=== PATIENT | male | born 1975 | race Caucasian/White ===

== ENCOUNTER 2021-07-07 17:33 | Inpatient (IN) | payer OTHER ==
[2021-07-07] MEDS ORDERED: HEPARIN SODIUM 1,000 UN/ML (10ML VL) IV ONE (17:56)
[2021-07-07] MEDS ORDERED: SODIUM CHLORIDE 0.9% 1,000 ML IV STA (17:56)
[2021-07-07] MEDS ORDERED: ASPIRIN 81 MG PO STA (17:56)
[2021-07-07] MEDS ORDERED: NALOXONE 0.4 MG/ML 1 ML VIAL IV PRN (18:06)
--- NOTE | 2021-07-07 18:06 | ED ---
General Adult HPI - General Chief complaint: Chest Pain Stated complaint: Chest & Jaw pain Time Seen by Provider: 07/07/21 17:52 Source: patient, family, RN notes reviewed, old records reviewed Mode of arrival: ambulatory - History of Present Illness Initial comments: Patient is a 45-year-old male with past medical history remarkable for hypertension who presents emergency Department complaining of chest pain with radiation to his left jaw. Describes left-sided chest pain as sharp and pressure-like that is somewhat improved from earlier today. He states it first started last night and got worse this morning and throughout the day today. It eased up slightly before he arrived to the emergency department. However due to still present over the left side of his chest or describes it as a sharp, pressure-like sensation. It radiates to his left jaw. Denies any history of MIs, bleeding disorders, head injuries. Denies any shortness of breath, nausea, vomiting, abdominal pain. He otherwise has no acute complaints at this time. He presents emergency department over concern for his chest pain. It was found that his EKG was concerning for an [place] in triage and was brought back to the resuscitation bay where I evaluated the patient. History is as above. STEMI elton rebekah was activated. - Related Data Home Medications Medication Instructions Recorded Confirmed Metformin (Unknown Dose) 1 tab PO DIRECTED 07/07/21 07/07/21 Verapamil (Unknown Dose) 1 tab PO DIRECTED 07/07/21 07/07/21 Allergies Allergy/AdvReac Type Severity Reaction Status Date / Time No Known Allergies Allergy Verified 07/07/21 18:08 Review of Systems ROS Statement: Those systems with pertinent positive or pertinent negative responses have been documented in the HPI. Review of Systems: CONST: Denies fever EYES: Denies blurry vision ENT: Denies nasal congestion C/V: Endorses chest pain RESP: Denies shortness of breath GI: Denies abdominal pain : Denies dysuria SKIN: Denies rash. MSK: Denies joint pain. NEURO: Denies headache ROS Other: All systems not noted in ROS Statement are negative. Past Medical History Past Medical History: Hypertension Past Surgical History: Hernia Repair, Orthopedic Surgery Smoking Status: Former smoker Past Alcohol Use History: None Reported Past Drug Use History: None Reported General Exam - General Exam Comments Initial Comments: General: Appears in no acute distress. HEAD: Normal with no signs of head trauma. EYES: PERRLA, EOMI, conjunctiva normal, no discharge. ENT: Hearing grossly intact, normal oropharynx. RESPIRATORY: Clear breath sounds bilaterally. No wheezes, rales, or rhonchi. C/V: Regular rate and rhythm. S1 and S2 auscultated, no edema, peripheral pulses 2+ and intact throughout. Mildly hypertensive. ABD: Abd is soft, nontender, nondistended EXT: Normal range of motion, no obvious deformity SKIN: No rashes or lesions observed on exposed skin. NEURO: Alert and oriented 4. No focal weakness or numbness. Course Vital Signs 07/07/21 07/07/21 07/07/21 17:52 17:56 17:58 Pulse Rate 81 85 Pulse Rate [ Right Supine Radial] Respiratory 16 Rate Blood Pressure 171/95 171/95 O2 Sat by Pulse 97 Oximetry 07/07/21 18:00 Pulse Rate Pulse Rate [ 77 Right Supine Radial] Respiratory Rate Blood Pressure O2 Sat by Pulse Oximetry Medical Decision Making - Medical Decision Making Based on the patient's presentation and physical exam, I'm concerned for an acute STEMI. STEMI pager was activated. Cardiac labs were ordered. Patient was bolused 4000 units of heparin, given 324 mg of aspirin, and placed on oxygen. He was started on 1 L fluid bolus. I spoke with cardiology on-call, Dr. Vásquez who was in agreement with the plan. Patient will be taken to cardiac catheterization suite for immediate cardiac cath. He'll be admitted to ICU afterwards. Patient is taken to the cardiac [facility] in serious condition. Chest x-ray was obtained prior to transfer and showed no acute cardio primary process. Laboratory studies returned after the patient is taken to [facility] was remarkable for an indeterminate troponin of 0.014. Remainder the labs are unremarkable. I spoke with the admitting team,Jeannine de jesus [facility] accepted the patient. Patient was therefore admitted to the ICU in serious condition to telemetry bed. Patient will be advised to following cardiac cath. - Lab Data Result diagrams: 07/07/21 18:00 07/07/21 18:00 Lab Results 07/07/21 07/07/21 07/07/21 Range/Units 18:00 18:00 18:00 WBC 10.4 (3.8-10.6) k/uL RBC 5.20 (4.30-5.90) m/uL Hgb 16.9 (13.0-17.5) gm/dL Hct 48.2 (39.0-53.0) % MCV 92.7 (80.0-100.0) fL MCH 32.4 (25.0-35.0) pg MCHC 35.0 (31.0-37.0) g/dL RDW 13.2 (11.5-15.5) % Plt Count 266 (150-450) k/uL MPV 7.7 Neutrophils % 57 % Lymphocytes % 29 % Monocytes % 6 % Eosinophils % 3 % Basophils % 1 % Neutrophils # 6.0 (1.3-7.7) k/uL Lymphocytes # 3.0 (1.0-4.8) k/uL Monocytes # 0.7 (0-1.0) k/uL Eosinophils # 0.3 (0-0.7) k/uL Basophils # 0.1 (0-0.2) k/uL PT 10.5 (9.0-12.0) sec INR 1.0 (<1.2) APTT 23.2 (22.0-30.0) sec Sodium 137 (137-145) mmol/L Potassium 4.2 (3.5-5.1) mmol/L Chloride 103 (98-107) mmol/L Carbon Dioxide 25 (22-30) mmol/L Anion Gap 9 mmol/L BUN 16 (9-20) mg/dL Creatinine 1.10 (0.66-1.25) mg/dL Est GFR (CKD-EPI)AfAm >90 (>60 ml/min/1.73 sqM) Est GFR (CKD-EPI)NonAf 80 (>60 ml/min/1.73 sqM) Glucose 153 H (74-99) mg/dL Calcium 9.9 (8.4-10.2) mg/dL Total Bilirubin 0.5 (0.2-1.3) mg/dL AST 34 (17-59) U/L ALT 41 (4-49) U/L Alkaline Phosphatase 97 (38-126) U/L Troponin I (0.000-0.034) ng/mL Total Protein 7.6 (6.3-8.2) g/dL Albumin 4.5 (3.5-5.0) g/dL 07/07/21 Range/Units 18:00 WBC (3.8-10.6) k/uL RBC (4.30-5.90) m/uL Hgb (13.0-17.5) gm/dL Hct (39.0-53.0) % MCV (80.0-100.0) fL MCH (25.0-35.0) pg MCHC (31.0-37.0) g/dL RDW (11.5-15.5) % Plt Count (150-450) k/uL MPV Neutrophils % % Lymphocytes % % Monocytes % % Eosinophils % % Basophils % % Neutrophils # (1.3-7.7) k/uL Lymphocytes # (1.0-4.8) k/uL Monocytes # (0-1.0) k/uL Eosinophils # (0-0.7) k/uL Basophils # (0-0.2) k/uL PT (9.0-12.0) sec INR (<1.2) APTT (22.0-30.0) sec Sodium (137-145) mmol/L Potassium (3.5-5.1) mmol/L Chloride (98-107) mmol/L Carbon Dioxide (22-30) mmol/L Anion Gap mmol/L BUN (9-20) mg/dL Creatinine (0.66-1.25) mg/dL Est GFR (CKD-EPI)AfAm (>60 ml/min/1.73 sqM) Est GFR (CKD-EPI)NonAf (>60 ml/min/1.73 sqM) Glucose (74-99) mg/dL Calcium (8.4-10.2) mg/dL Total Bilirubin (0.2-1.3) mg/dL AST (17-59) U/L ALT (4-49) U/L Alkaline Phosphatase (38-126) U/L Troponin I 0.014 (0.000-0.034) ng/mL Total Protein (6.3-8.2) g/dL Albumin (3.5-5.0) g/dL - EKG Data -: EKG Interpreted by Me EKG Comments: 12-lead Electrocardiogram Interpretation Note EKG was reviewed and interpreted by myself. 12-lead ECG performed at 1745 is interpreted by me as revealing normal sinus rhythm at a rate of 78 beats per m inute. [place] is normal. HI interval is 144 ms, QRS duration is 96 seconds, QTC is [address] segment elevations in leads 2, 3, aVF with reciprocal depressions in lead I, aVL. Patient also has ST segment elevation in lead aVR.. R wave progression across the precordium was satisfactory. Repeat dictation, this EKG is concerning for a STEMI in the inferior wall distribution.. Disposition Clinical Impression: ST elevation myocardial infarction (STEMI), Chest pain Disposition: ADMITTED IP TO THIS HOSP Condition: Serious
[2021-07-07] MEDS ORDERED: SODIUM CHLORIDE 0.9% 500 ML 500 ML IV ONE (18:09)
[2021-07-07] MEDS ORDERED: IV FLUID CONTINUATION 800 ML IV ONE (18:09)
[2021-07-07] MEDS ORDERED: LIDOCAINE 1% INJ 10MG/ML (20 ML MDV) ONE (18:13)
[2021-07-07] MEDS ORDERED: VERAPAMIL 2.5 MG/ML 2 ML AMP ONE (18:14)
[2021-07-07 18:22] LABS: ALT 41 U/L (4-49); AST 34 U/L (17-59); African American GFR (CKD) >90 (>60 ml/min/1.73 sqM); Albumin 4.5 g/dL (3.5-5.0); Alkaline Phosphatase 97 U/L (38-126); Anion Gap 9 mmol/L; Blood Urea Nitrogen 16 mg/dL (9-20); Calcium 9.9 mg/dL (8.4-10.2); Carbon Dioxide 25 mmol/L (22-30); Chloride 103 mmol/L (98-107); Glucose 153 mg/dL (74-99); Non-African American GFR(CKD) 80 (>60 ml/min/1.73 sqM); Potassium 4.2 mmol/L (3.5-5.1); Sodium 137 mmol/L (137-145); Total Bilirubin 0.5 mg/dL (0.2-1.3); Total Protein 7.6 g/dL (6.3-8.2)
--- NOTE | 2021-07-07 18:27 | XR ---
EXAMINATION TYPE: XR chest 1V portable DATE OF EXAM: 07/07/2021 COMPARISON: NONE HISTORY: Chest pain TECHNIQUE: Single view FINDINGS: There is no heart failure nor confluent pneumonic infiltrate. Costophrenic angles are clear . There are no hilar masses. There are chest leads. IMPRESSION: No active cardiopulmonary disease. Normal heart.
[2021-07-07 18:31] LABS: Partial Thromboplastin Time 23.2 sec (22.0-30.0); Prothrombin Time 10.5 sec (9.0-12.0)
[2021-07-07] MEDS ORDERED: MIDAZOLAM 2 MG/2 ML VIAL IV ONE (18:37)
[2021-07-07] MEDS ORDERED: LIDOCAINE 1% INJ 10MG/ML (20 ML MDV) SQ ONE (18:38)
[2021-07-07] MEDS: VERAPAMIL SYRINGE (5 MG/10 ML) INTRAARTER ONE ×2 (18:40→19:13)
[2021-07-07] MEDS ORDERED: HEPARIN SODIUM 1,000 UN/ML (10ML VL) ONE (18:48)
[2021-07-07] MEDS ORDERED: TIROFIBAN 12.5MG-250ML NS 250 ML IV ONE (18:55)
[2021-07-07] MEDS ORDERED: TIROFIBAN BOLUS 12.5MG/250 ML BAG IV ONE (18:55)
[2021-07-07] MEDS ORDERED: IOPAMIDOL-370 100ML BTL INJ ONE ×2 (18:56→19:19)
[2021-07-07] MEDS ORDERED: NITROGLYCERIN 1000MCG/10ML SYRINGE INTRACORON ONE (18:57)
[2021-07-07 18:59] LABS: Basophils # (A) 0.1 k/uL (0-0.2); Basophils % (A) 1 %; Eosinophils # (A) 0.3 k/uL (0-0.7); Eosinophils % (A) 3 %; HCT 48.2 % (39.0-53.0); HGB 16.9 gm/dL (13.0-17.5); Lymphocytes % (A) 29 %; MCH 32.4 pg (25.0-35.0); MCV 92.7 fL (80.0-100.0); Mean Platelet Volume 7.7; Monocytes # (A) 0.7 k/uL (0-1.0); Monocytes % (A) 6 %; Neutrophils % (A) 57 %; Platelet Count 266 k/uL (150-450); RDW 13.2 % (11.5-15.5); WBC 10.4 k/uL (3.8-10.6)
[2021-07-07] MEDS ORDERED: CLOPIDOGREL 75 MG TAB ONE (19:08)
[2021-07-07] MEDS ORDERED: CLOPIDOGREL 75 MG TAB PO ONE (19:10)
[2021-07-07] MEDS ORDERED: RX INFO: IV CONTRAST WAS GIVEN 1 EACH MISC MISCELLANE PRN (19:20)
[2021-07-07] MEDS ORDERED: NITROGLYCERIN SL TABS 0.4 MG TAB SUBLINGUAL PRN (19:20)
[2021-07-07] MEDS ORDERED: MAG HYDROX/AL HYDROX/SIMETH 30 ML CUP PO PRN (19:20)
[2021-07-07] MEDS ORDERED: ZOLPIDEM 5 MG TAB PO PRN (19:20)
[2021-07-07] MEDS ORDERED: ATROPINE SULFATE 0.1 MG/ML 10ML SYRINGE IV PRN (19:20)
[2021-07-07 19:48] LABS: Glucose,Whole Blood 134 mg/dL (75-99)
[2021-07-07] MEDS ORDERED: TIROFIBAN 12.5MG-250ML NS 250 ML IV SCH (20:00)
[2021-07-07] MEDS: INSULIN ASPART (NovoLOG) 100 UNIT/ML VIAL SQ SCH (20:12)
[2021-07-07] MEDS: METOPROLOL TARTRATE 25 MG TAB PO SCH (20:13)
[2021-07-07] MEDS: SODIUM CHLORIDE 0.9% 1,000 ML IV SCH (20:14)
[2021-07-07] MEDS: FAMOTIDINE 20 MG TAB PO SCH (20:14)
[2021-07-07] MEDS: ATORVASTATIN 80 MG TAB PO SCH (20:14)
--- NOTE | 2021-07-07 21:51 | CC ---
CARDIAC CATHETERIZATION REPORT DATE OF SERVICE: 07/07/2021. PROCEDURE: 1. Left heart catheterization and coronary angiography. 2. PTCA and stenting of a 100% occluded first obtuse marginal branch of circumflex in the setting of an acute inferior ST-elevation myocardial infarction with reperfusion accomplished in 76 minutes. PERFORMED BY: Dr. Deanna Vásquez. Moderate conscious sedation time was 36 minutes. Patient was administered Versed. Oxygen saturation, hemodynamics and EKG were monitored closely. CLINICAL INFORMATION: Mr. Yinka Murphy is a 45-year-old gentleman with a newly diagnosed diabetes and also hypertension, came into the hospital with chest pain had an inferior ST-elevation, very subtle and ST depression in aVL. He was advised cardiac cath expeditiously. PROCEDURE NOTE: Under local anesthesia and strict aseptic precautions, a 6-Bahamian introducer was placed in the right radial artery. I used a JR4 guide catheter to perform selective coronary angiography of the right coronary artery and then performed with a left Xavi type 3.5 curve guide catheter to perform selective coronary angiography of the left system and went ahead and performed PCI of the first obtuse marginal branch. Subsequently, the sheath was taken out and TR band applied as per protocol and patient was sent to the room in a stable condition. He tolerated the procedure well without complications. He received 600 mg of Plavix. He also received an Aggrastat bolus and infusion as per protocol. His ACT was kept between 200 and 250. Following the PCI procedure, I checked LV pressures with a pigtail catheter but LV gram was not performed. CARDIAC CATHETERIZATION FINDINGS: Left ventricular end-diastolic pressure was 10 mmHg without any gradient across aortic valve. CORONARY ANGIOGRAPHY FINDINGS: RIGHT CORONARY ARTERY: Technically a codominant type vessel which comes off rather inferiorly the takeoff. No significant disease in the proximal one third, gives off a large acute marginal that supplies the PDA distribution. The RCA then continues and distally bifurcates into PDA and PLV, both of which supply a limited amount of myocardium. There is mild diffuse disease in these branches which are actually small, but the right coronary crosses the crux and the PDA comes off this vessel. LEFT MAIN CORONARY ARTERY: This is a short, patent vessel free of significant disease that immediately bifurcates into LAD and circumflex. LEFT ANTERIOR DESCENDING CORONARY ARTERY: Good caliber vessel extends along the anterior wall, gives off septal and a good-sized diagonal branch runs all the way to the apex supplying a sizable amount of myocardium. There are minor diffuse irregularities seen throughout the LAD system. LEFT POSTERIOR CIRCUMFLEX CORONARY ARTERY: This is a technically a nondominant, or a codominant vessel that gives off a first obtuse marginal which is totally occluded, seen as a stump. The circumflex then continues in the AV groove and gives off distal posterolateral branches which have minor diffuse disease. The first obtuse marginal is totally occluded 100% and seen as a stump and is the culprit vessel. FINAL IMPRESSION: This patient has normal filling pressures. No gradient across the aortic valve, a codominant system with diffuse disease in the branches of RCA, no significant disease in the left main, LAD has minor diffuse disease. The circumflex is marginal which is the first obtuse marginal is totally occluded 100% and is a culprit vessel. RECOMMENDATIONS: I proceeded with PCI of the circumflex expeditiously. PCI PROCEDURE DETAILS: I used a JL3.5 guide catheter to cannulate the left coronary artery and a run-through wire to cross the lesion. A 2.5 caliber 12 mm Trek balloon was used to pre-dilate the lesion. I then advanced and positioned a 28 mm long 3.25 caliber Xience stent and deployed this at 12 atmospheres. Patient had mild chest discomfort. No new EKG changes. Excellent angiographic result was achieved without complication. The patient received Aggrastat bolus and infusion. He also received 600 mg of Plavix. The sheath was taken out and TR band applied as per protocol with saturation of the fingers of the right hand of more than 93%. Excellent angiographic result without complication was achieved. Results were discussed with the patient and his and he was sent to the ICU in stable condition. MMODL / IJN: [id number] /
--- NOTE | 2021-07-07 21:54 | CONS ---
CONSULTATION This is a 45-year-old gentleman who was recently diagnosed with diabetes. He also has hypertensive cardiovascular disease. He sees Dr. Beltran from a primary care standpoint. He has a very hardworking person. He is a electrical construction project manager by trade. He has been experiencing chest discomfort on and off for at least the last couple of days. It culminated to a very strong pressure that persisted radiating to the left arm and left jaw and he came into the hospital, was found to have a J-point elevation and a STEMI alert was called. I saw the patient in the laborer [place]. He was having chest discomfort. There was a very subtle inferior J-point elevation with some ST depression in lead AVR. The patient was hemodynamically stable. He was recently diagnosed with diabetes and placed on metformin. PAST MEDICAL HISTORY: 1. Hypertension. 2. Diabetes recently diagnosed with metformin. 3. Status post umbilical hernia surgery. 4. No evidence of any prior myocardial infarction or CVA. MEDICATIONS: Medications at home include metformin, dose unknown; verapamil dose unknown. ALLERGIES: None. REVIEW OF SYSTEMS: Unremarkable other than above-mentioned facts. PHYSICAL EXAMINATION: On examination, blood pressure is 140/70, pulse rate is 90 per minute, regular. HEENT unremarkable. Fundus was not examined by me. NECK is supple. There is no JVD. I do not hear a carotid bruit. HEART exam reveals S1, S2 heard normally. There is an ejection systolic murmur at the base. Second heart sound is preserved. LUNGS are clear. ABDOMEN is soft, nontender. Lower EXTREMITIES reveal normal pulses. No edema. CENTRAL NERVOUS SYSTEM is normal. EKG revealed sinus mechanism, J-point prominence of the inferior leads and also ST depression involving lead aVL. IMPRESSION: 1. Acute inferior ST-elevation myocardial infarction. 2. Hypertension. 3. Newly diagnosed type 2 diabetes mellitus. RECOMMENDATIONS: Prompt cardiac cath and PCI were advised and I went ahead with the procedure expeditiously. MMODL / IJN: [id number] /
[2021-07-08 04:04] LABS: African American GFR (CKD) >90 (>60 ml/min/1.73 sqM); Anion Gap 5 mmol/L; Basophils # (A) 0.1 k/uL (0-0.2); Basophils % (A) 1 %; Blood Urea Nitrogen 14 mg/dL (9-20); Calcium 8.7 mg/dL (8.4-10.2); Carbon Dioxide 23 mmol/L (22-30); Chloride 108 mmol/L (98-107); Eosinophils # (A) 0.3 k/uL (0-0.7); Eosinophils % (A) 2 %; Glucose 106 mg/dL (74-99); HCT 43.6 % (39.0-53.0); HGB 14.2 gm/dL (13.0-17.5); Lymphocytes % (A) 25 %; MCH 31.1 pg (25.0-35.0); MCHC 32.7 g/dL (31.0-37.0); MCV 95.3 fL (80.0-100.0); Mean Platelet Volume 7.6; Monocytes # (A) 0.8 k/uL (0-1.0); Monocytes % (A) 7 %; Neutrophils # (A) 7.1 k/uL (1.3-7.7); Neutrophils % (A) 61 %; Non-African American GFR(CKD) >90 (>60 ml/min/1.73 sqM); Platelet Count 241 k/uL (150-450); Potassium 4.2 mmol/L (3.5-5.1); RBC 4.57 m/uL (4.30-5.90); RDW 12.6 % (11.5-15.5); Sodium 136 mmol/L (137-145); WBC 11.7 k/uL (3.8-10.6)
[2021-07-08] MEDS: INSULIN ASPART (NovoLOG) 100 UNIT/ML VIAL SQ SCH ×4 (04:21→20:11)
[2021-07-08] MEDS: METOPROLOL TARTRATE 25 MG TAB PO SCH ×2 (09:19→20:10)
[2021-07-08] MEDS: ASPIRIN 81 MG PO SCH (09:20)
[2021-07-08] MEDS: CLOPIDOGREL 75 MG TAB PO SCH (09:20)
[2021-07-08] MEDS: lisinopriL 10 MG TAB PO SCH (09:21)
[2021-07-08] MEDS: FAMOTIDINE 20 MG TAB PO SCH ×2 (09:21→20:10)
[2021-07-08] MEDS: SODIUM CHLORIDE 0.9% 1,000 ML IV SCH (09:21)
--- NOTE | 2021-07-08 09:26 | ECHOF ---
Referral Reason:Ac STEMI INF--LCX PCI MEASUREMENTS -------- HEIGHT: 177.8 cm WEIGHT: 93.4 kg BP: RVIDd: 2.5 cm (< 3.3) IVSd: 1.1 cm (0.6 - 1.1) LVIDd: 4.3 cm (3.9 - 5.3) LVPWd: 1.2 cm (0.6 - 1.1) IVSs: 1.4 cm LVIDs: 2.6 cm LVPWs: 1.9 cm LAESV Index (A-L): 18.77 ml/m Ao Diam: 3.0 cm (2.0 - 3.7) AV Cusp: 1.7 cm (1.5 - 2.6) LA Diam: 3.3 cm (2.7 - 3.8) MV EXCURSION: 24.403 mm (> 18.000) MV EF SLOPE: 167 mm/s (70 - 150) EPSS: 0.6 cm MV E Nabil: 0.97 m/s MV DecT: 166 ms MV A Nabil: 1.07 m/s MV E/A Ratio: 0.91 RAP: 5.00 mmHg RVSP: 11.42 mmHg FINDINGS -------- This was a technically good study. The left ventricular size is normal. There is mild concentric left ventricular hypertrophy. Overa ll left ventricular systolic function is normal with, an EF between 55 - 60 %. The diastolic fillin g pattern is normal for the age of the patient 11.37. The right ventricle is normal in size. The left atrial size is normal. Normal LA size by volume 22+/-6 ml/m2. The right atrial size is normal. The aortic valve is trileaflet and appears structurally normal. The mitral valve is normal. There is trace mitral regurgitation. The tricuspid valve appears structurally normal. Trace tricuspid regurgitation present. Right tiffany tricular systolic pressure is normal at < 35 mmHg. There is no pulmonic regurgitation present. The aortic root size is normal. IVC Not well visulized. There is no pericardial effusion. CONCLUSIONS -------- 1. The left ventricular size is normal. 2. There is mild concentric left ventricular hypertrophy. 3. Overall left ventricular systolic function is normal with, an EF between 55 - 60 %. 4. The diastolic filling pattern is normal for the age of the patient 11.37 5. There is trace mitral regurgitation. 6. Trace tricuspid regurgitation present. 7. There is no pericardial effusion. HOME INSPECTOR: Renetta Baird RDCS
[2021-07-08 10:14] VITALS: BMI 28.0
[2021-07-08] MEDS: allopurinoL 100 MG TAB PO SCH ×2 (10:34→20:10)
[2021-07-08 11:52] LABS: Glucose,Whole Blood 122 mg/dL (75-99)
--- NOTE | 2021-07-08 12:27 | P.HPIM ---
History of Present Illness This is a pleasant 45 years old male with past medical history of hypertension. Presents because of worsening substernal chest pain of one-day duration and elevated blood pressure found to have STEMI No other complaint of dyspnea coughing, no pain or nausea vomiting. No fever On admission his blood pressure 171/95. Rest of vitals are stable Labs reviewed, he has mild leukocytosis secondary to his stemi. rest of labs including inr, d-dimer, bmp and liver enzymes are unremarkable. his d-dimer is 0.31. troponin trended up 0.014 up to 11.9 and 25.4. EKG: Showed normal sinus rhythm at 78, ST segment elevated in late III and aVF, with some reciprocal changes in the lateral leads. Patient underwent emergent cardiac cath showing stenting 400% occluded first obtuse marginal branch of circumflex X-ray: No acute process. Review of Systems CONSTITUTIONAL: No fever, no malaise, no fatigue. HEENT: No recent visual problems or hearing problems. Denied any sore throat. CARDIOVASCULAR: No orthopnea, PND, no palpitations, no syncope. PULMONARY: No shortness of breath, no cough, no hemoptysis. GASTROINTESTINAL: No diarrhea, no nausea, no vomiting, no abdominal pain. Normoactive bowel sounds. NEUROLOGICAL: No headaches, no weakness, no numbness. HEMATOLOGICAL: Denies any bleeding or petechiae. GENITOURINARY: Denies any burning micturition, frequency, or urgency. MUSCULOSKELETAL/RHEUMATOLOGICAL: Denies any joint pain, swelling, or any muscle pain. ENDOCRINE: Denies any polyuria or polydipsia. Past Medical History Past Medical History: Hypertension Additional Past Medical History / Comment(s): umbilical hernia History of Any Multi-Drug Resistant Organisms: None Reported Past Surgical History: Hernia Repair, Orthopedic Surgery Past Anesthesia/Blood Transfusion Reactions: No Reported Reaction Additional Past Anesthesia/Blood Transfusion Reaction / Comment(s): never had blood transfusion. Smoking Status: Former smoker Past Alcohol Use History: None Reported Past Drug Use History: None Reported - Past Family History Father History Unknown: Yes Mother Family Medical History: No Reported History Sister(s) Family Medical History: Diabetes Mellitus Brother(s) Family Medical History: Diabetes Mellitus Medications and Allergies Home Medications Medication Instructions Recorded Confirmed Type Metformin (Unknown Dose) 1 tab PO DIRECTED 07/07/21 07/07/21 History Verapamil (Unknown Dose) 1 tab PO DIRECTED 07/07/21 07/07/21 History Allergies Allergy/AdvReac Type Severity Reaction Status Date / Time No Known Allergies Allergy Verified 07/07/21 18:08 Physical Exam Vitals: Vital Signs Temp Pulse Pulse Resp BP Pulse Ox 07/08/21 07:00 79 10 L 121/75 97 07/08/21 06:00 60 16 122/71 97 07/08/21 05:00 61 16 121/69 96 07/08/21 04:00 97.9 F 70 18 117/72 95 07/08/21 03:00 64 12 124/74 95 07/08/21 02:00 63 16 125/72 96 07/08/21 01:00 62 18 121/70 96 07/08/21 00:00 98.2 F 64 16 124/73 96 07/07/21 23:45 68 123/68 96 07/07/21 23:30 73 140/91 96 07/07/21 23:15 75 133/77 96 07/07/21 23:00 77 16 130/68 95 07/07/21 22:45 75 127/71 96 07/07/21 22:30 73 128/69 97 07/07/21 22:15 77 130/69 96 07/07/21 22:00 87 16 137/70 96 07/07/21 21:45 80 144/73 95 07/07/21 21:30 87 135/81 95 07/07/21 21:15 77 14 156/79 95 07/07/21 21:00 79 28 H 139/76 97 07/07/21 20:45 79 20 128/76 97 07/07/21 20:30 82 15 131/75 96 07/07/21 20:10 80 20 138/63 96 07/07/21 20:00 98.7 F 78 16 95 07/07/21 19:50 75 19 127/90 96 07/07/21 18:00 77 07/07/21 17:58 171/95 07/07/21 17:56 85 07/07/21 17:52 81 16 171/95 97 Intake and Output 07/07/21 07/08/21 07/08/21 22:59 06:59 14:59 Intake Total 379.71 600 75 Output Total 800 900 Balance -420.29 -300 75 Intake: IV 379.71 600 75 Sodium Chloride 0.9% 1, 225 600 75 000 ml @ 75 mls/hr IV . [id number] [facility] Rx#:[id number] Output: Urine 800 900 Other: # Voids 1 0 0 Weight 93.7 kg 93.6 kg GENERAL: The patient is alert and oriented x3, not in any acute distress. Well developed, well nourished. HEENT: Pupils are round and equally reacting to light. EOMI. No scleral icterus. No conjunctival pallor. Normocephalic, atraumatic. No pharyngeal erythema. No thyromegaly. CARDIOVASCULAR: S1 and S2 present. No murmurs, rubs, or gallops. PULMONARY: Chest is clear to auscultation, no wheezing or crackles. ABDOMEN: Soft, nontender, nondistended, normoactive bowel sounds. No palpable o rganomegaly. MUSCULOSKELETAL: No joint swelling or deformity. EXTREMITIES: No cyanosis, clubbing, or pedal edema. NEUROLOGICAL: Gross neurological examination did not reveal any focal deficits. SKIN: No rashes. No petechiae Results CBC & Chem 7: 07/08/21 03:08 07/08/21 03:08 Labs: Abnormal Lab Results - Last 24 Hours (Table) 07/07/21 07/07/21 07/07/21 Range/Units 18:00 19:45 22:32 WBC (3.8-10.6) k/uL Sodium (137-145) mmol/L Chloride (98-107) mmol/L Glucose 153 H (74-99) mg/dL POC Glucose (mg/dL) 134 H (75-99) mg/dL Troponin I 11.900 H* (0.000-0.034) ng/mL 07/08/21 07/08/21 07/08/21 Range/Units 03:08 03:08 03:08 WBC 11.7 H (3.8-10.6) k/uL Sodium 136 L (137-145) mmol/L Chloride 108 H (98-107) mmol/L Glucose 106 H (74-99) mg/dL POC Glucose (mg/dL) (75-99) mg/dL Troponin I 25.400 H* (0.000-0.034) ng/mL Thrombosis Risk Factor Assmnt - Choose All That Apply Each Factor Represents 1 point: Acute SC, Age 41-60 years, Obesity (BMI >25) Other Risk Factors: No Other congenital or acquired thrombophilia - If yes, enter type in comment: No Thrombosis Risk Factor Assessment Total Risk Factor Score: 3 Thrombosis Risk Factor Assessment Level: Moderate Risk Assessment and Plan Assessment: Acute inferior ST elevation myocardial infarction status post cardiac cath status post PCI to the first obtuse branch of circumflex artery Hypertension, uncontrolled upon admission over-weight with BMI of 28 Plan: This is a pleasant 45 years old male who presents with inferior STEMI Continue with dual antiplatelet therapy, aspirin and Plavix Continue with statin Continue with metoprolol and lisinopril Continue with gentle hydration Cartilage team consult Labs and medication were reviewed.. Continue same treatment. Continue with symptomatic treatment. Resume home medication. Monitor lytes and vitals. DVT and GI prophylaxis. Further recommendations depends on the clinical course of the patient DVT prophylaxis: On aspirin and Plavix GI Prophylaxis: Pepcid
[2021-07-08 16:19] LABS: Glucose,Whole Blood 110 mg/dL (75-99)
--- NOTE | 2021-07-08 17:01 | P.PN ---
Subjective Patient is doing well. He has no chest discomfort no dizziness lightheadedness no palpitations Heart rate in the 60s and 70s, afebrile 98.8F Respirations 16 Blood pressure 109/60 mmHg Normal heart sounds no murmurs or gallops or rub Bing lungs no rhonchi no crackles Abdomen is soft Except is warm Radial access site is healed well 2-D echo and Doppler study reveals mild LVH line preserved LV systolic function Impression Coronary artery disease Acute ST elevation MA, inferior wall Stenting to the occluded OM branch of the left circumflex by Dr. Vásquez Suggest Continue dual antiplatelet therapy Continue atorvastatin Continue lisinopril Continue metoprolol 25 mg twice daily Likely discharge after 24-48 hours Objective - Vital Signs Vital signs: Vital Signs Temp 98.8 F 07/08/21 16:00 Pulse 68 07/08/21 16:00 Resp 16 07/08/21 16:00 BP 104/59 07/08/21 16:00 Pulse Ox 97 07/08/21 16:00 Intake & Output 07/07/21 07/08/21 07/08/21 18:59 06:59 18:59 Intake Total 154.71 825 525 Output Total 1700 1900 Balance 154.71 -875 -1375 Weight 93.7 kg 93.6 kg 93.6 kg Intake: IV 154.71 825 525 Sodium Chloride 0.9% 1, 825 525 000 ml @ 75 mls/hr IV . [id number] [facility] Rx#:[id number] Output: Urine 1700 1900 Other: Voiding Method Urinal # Voids 0 0 - Labs CBC & Chem 7: 07/08/21 03:08 07/08/21 03:08 Labs: Abnormal Lab Results - Last 24 Hours (Table) 07/07/21 07/07/21 07/07/21 Range/Units 18:00 19:45 22:32 WBC (3.8-10.6) k/uL Sodium (137-145) mmol/L Chloride (98-107) mmol/L Glucose 153 H (74-99) mg/dL POC Glucose (mg/dL) 134 H (75-99) mg/dL Troponin I 11.900 H* (0.000-0.034) ng/mL 07/08/21 07/08/21 07/08/21 Range/Units 03:08 03:08 03:08 WBC 11.7 H (3.8-10.6) k/uL Sodium 136 L (137-145) mmol/L Chloride 108 H (98-107) mmol/L Glucose 106 H (74-99) mg/dL POC Glucose (mg/dL) (75-99) mg/dL Troponin I 25.400 H* (0.000-0.034) ng/mL 07/08/21 07/08/21 Range/Units 11:43 16:18 WBC (3.8-10.6) k/uL Sodium (137-145) mmol/L Chloride (98-107) mmol/L Glucose (74-99) mg/dL POC Glucose (mg/dL) 122 H 110 H (75-99) mg/dL Troponin I (0.000-0.034) ng/mL
[2021-07-08 19:59] LABS: Glucose,Whole Blood 173 mg/dL (75-99)
[2021-07-08] MEDS: ATORVASTATIN 80 MG TAB PO SCH (20:10)
[2021-07-09] MEDS: INSULIN ASPART (NovoLOG) 100 UNIT/ML VIAL SQ SCH ×2 (06:27→13:42)
[2021-07-09 06:33] LABS: Glucose,Whole Blood 115 mg/dL (75-99)
[2021-07-09] MEDS: METOPROLOL TARTRATE 25 MG TAB PO SCH (10:03)
[2021-07-09] MEDS: lisinopriL 10 MG TAB PO SCH (10:04)
[2021-07-09] MEDS: CLOPIDOGREL 75 MG TAB PO SCH (10:04)
[2021-07-09] MEDS: allopurinoL 100 MG TAB PO SCH (10:04)
[2021-07-09] MEDS: FAMOTIDINE 20 MG TAB PO SCH (10:04)
[2021-07-09] MEDS: ASPIRIN 81 MG PO SCH (10:04)
--- NOTE | 2021-07-09 11:38 | P.PN ---
Subjective Patient is doing well. He is resting comfortably in a chair He is been ambulating around the room He denies any chest discomfort no dizziness lightheadedness no palpitations On examination he is afebrile 98.9F pulse rate in the 60s and 70s Respirations normal Blood pressure 111/65 mmHg Normal heart sounds no murmurs no gallops Breath sounds clear no rhonchi no crackles Abdomen is soft Radials access site is healed well Impression acute myocardial infarction Status post stenting by Dr. Vásquez Preserved LV systolic function Stable from a cardiac vascular standpoint and a symptomatic procedure Plan Discharge home today on dual antiplatelet therapy High-dose statins Junior inhibitors and beta blockers Follow-up with Dr. Vásquez in a week Objective - Vital Signs Vital signs: Vital Signs Temp 98.9 F 07/09/21 08:00 Pulse 79 07/09/21 10:00 Resp 19 07/09/21 10:00 BP 119/66 07/09/21 10:00 Pulse Ox 98 07/09/21 10:00 Intake & Output 07/08/21 07/09/21 07/09/21 18:59 06:59 18:59 Intake Total 525 200 Output Total 2150 775 Balance -1625 -575 Weight 93.6 kg 91.5 kg Intake: IV 525 Sodium Chloride 0.9% 1, 525 000 ml @ 75 mls/hr IV . [id number] [facility] Rx#:[id number] Oral 200 Output: Urine 2150 775 Other: Voiding Method Urinal Urinal Urinal # Voids 0 0 2 - Labs CBC & Chem 7: 07/08/21 03:08 07/08/21 03:08 Labs: Abnormal Lab Results - Last 24 Hours (Table) 07/08/21 07/08/21 07/08/21 Range/Units 11:43 16:18 19:47 POC Glucose (mg/dL) 122 H 110 H 173 H (75-99) mg/dL 07/09/21 Range/Units 06:21 POC Glucose (mg/dL) 115 H (75-99) mg/dL
[2021-07-09 13:40] VITALS: TEMP 97.7
[2021-07-09 14:04] VITALS: BP 117/66; PULSE 70; RESP 25
--- NOTE | 2021-07-09 21:03 | P.DS ---
Providers Date of admission: 07/07/21 18:08 Attending physician: Rodrick Sethi Consults: 07/07/21 17:56 Consult Physician Stat Consulting Provider: Cardiology Julissa Consult Reason/Comments: STEMI ACTIVATION COMPLETE Do you want consulting provider notified?: Yes 07/07/21 19:20 Consult Physician Routine Consulting Provider: Cardiology Julissa Consult Reason/Comments: Post Interventional patient Do you want consulting provider notified?: Already Contacted Primary care physician: David Beltran Hospital Course: Diagnoses: Acute inferior ST elevation myocardial infarction status post cardiac cath status post PCI to the first obtuse branch of circumflex artery Hypertension, uncontrolled upon admission over-weight with BMI of 28 Hospital course: This is a pleasant 45 years old male with past medical history of hypertension. Presents because of worsening substernal chest pain of one-day duration and elevated blood pressure found to have STEMI. Patient was taken to cardiac cath by console attendant today status post PCI to the diagonal branch. Post procedure he tolerates the procedure well. He denies any chest pain or dyspnea. No other complaints. No change in urine or bowel habits and no fever. Patient was started on dual antiplatelet therapy with aspirin and Plavix and the importance of adherence to treatment is explained to him. Also he was started on metoprolol and lisinopril. Patient remains medically stable and he was cleared for discharge by cardiology team today. Problems and management plan were discussed with the patient and he verbalized understanding and acceptance Patient was found stable and can be discharged home however he needs follow-up as an outpatient. Patient was instructed to follow up with PCP Dr. ortiz within one week and patient agrees Also patient was instructed to follow up with console attendant Dr. Vásquez in one week and he agrees to call and make his own appointments Physical exam Gen: patient is a AAOx3, no distress CVS: S1-S2, RRR, no murmur Lungs: B/L CTA, no wheezing Abdomen: soft, no distention, no tenderness, positive bowel sounds Extremity: no leg edema or induration Time spent more than 35 minutes Patient Condition at Discharge: Serious Plan - Discharge Summary Discharge Rx Participant: No New Discharge Prescriptions: New Metoprolol Tartrate [Lopressor] 25 mg PO BID #60 tab lisinopriL [Zestril] 10 mg PO DAILY #30 tab Aspirin 81 mg PO DAILY #30 tab Atorvastatin [Lipitor] 80 mg PO HS #30 tab Nitroglycerin Sl Tabs [Nitrostat] 0.4 mg SUBLINGUAL Q5M PRN #10 tab PRN Reason: Chest Pain Clopidogrel [Plavix] 75 mg PO DAILY #30 tab Continue Allopurinol [Zyloprim] 100 mg PO BID metFORMIN HCL [Glucophage] 850 mg PO DAILY Verapamil HCl [Calan] 120 mg PO DAILY Discharge Medication List Allopurinol [Zyloprim] 100 mg PO BID 07/08/21 [History] Verapamil HCl [Calan] 120 mg PO DAILY 07/08/21 [History] metFORMIN HCL [Glucophage] 850 mg PO DAILY 07/08/21 [History] Aspirin 81 mg PO DAILY #30 tab 07/09/21 [Rx] Atorvastatin [Lipitor] 80 mg PO HS #30 tab 07/09/21 [Rx] Clopidogrel [Plavix] 75 mg PO DAILY #30 tab 07/09/21 [Rx] Metoprolol Tartrate [Lopressor] 25 mg PO BID #60 tab 07/09/21 [Rx] Nitroglycerin Sl Tabs [Nitrostat] 0.4 mg SUBLINGUAL Q5M PRN #10 tab 07/09/21 [Rx] lisinopriL [Zestril] 10 mg PO DAILY #30 tab 07/09/21 [Rx] Follow up Appointment(s)/Referral(s): Rj Vásquez MD [STAFF PHYSICIAN] - 1 Week David Beltran DO [Primary Care Provider] - 1-2 days Activity/Diet/Wound Care/Special Instructions: COntact CM at discharge for indigent funds Heart healthy diet Activity is restricted until you see your doctor Discharge Disposition: HOME SELF-CARE
== END 2021-07-09 14:14 | disposition home or self-care (01) | DRG 247 ==
LOC: EC 17:33 → 2SICU 18:08
PROVIDERS: ADMIT Hospitalist; ATTEND Hospitalist
PROC: B2111ZZ Fluoroscopy of Multiple Coronary Arteries using Low Osmolar Contrast (ICD-10-PCS; 2021-07-07)
PROC: B2151ZZ Fluoroscopy of Left Heart using Low Osmolar Contrast (ICD-10-PCS; 2021-07-07)
PROC: 027034Z Dilation of Coronary Artery, One Artery with Drug-eluting Intraluminal Device, Percutaneous Approach (ICD-10-PCS; principal; 2021-07-07 17:58)
PROC: 4A023N7 Measurement of Cardiac Sampling and Pressure, Left Heart, Percutaneous Approach (ICD-10-PCS; 2021-07-07 17:58)
DX: I21.19 ST elevation (STEMI) myocardial infarction involving other coronary artery of inferior wall (principal); D72.829 Elevated white blood cell count, unspecified; I10 Essential (primary) hypertension; E11.9 Type 2 diabetes mellitus without complications; I25.10 Atherosclerotic heart disease of native coronary artery without angina pectoris; R01.1 Cardiac murmur, unspecified; I25.2 Old myocardial infarction; Z68.28 Body mass index [BMI] 28.0-28.9, adult; Z79.899 Other long term (current) drug therapy; Z87.891 Personal history of nicotine dependence; Z87.19 Personal history of other diseases of the digestive system; Z79.84 Long term (current) use of oral hypoglycemic drugs
CPT/HCPCS: 36415; 71045; 80048; 80053; 83036; 84484; 85025; 85379; 85610; 85730; 93005; 93306; 93458; 96374; 99285

== ENCOUNTER 2022-05-09 08:56 | Observation (INO) | payer OTHER ==
[2022-05-09 09:33] LABS: Basophils # (A) 0.1 k/uL (0-0.2); Basophils % (A) 1 %; Eosinophils # (A) 0.2 k/uL (0-0.7); Eosinophils % (A) 1 %; HCT 53.4 % (39.0-53.0); HGB 17.3 gm/dL (13.0-17.5); Lymphocytes # (A) 2.7 k/uL (1.0-4.8); Lymphocytes % (A) 23 %; MCH 31.5 pg (25.0-35.0); MCHC 32.5 g/dL (31.0-37.0); MCV 97.1 fL (80.0-100.0); Mean Platelet Volume 7.1; Monocytes # (A) 0.7 k/uL (0-1.0); Monocytes % (A) 6 %; Neutrophils # (A) 7.7 k/uL (1.3-7.7); Neutrophils % (A) 66 %; Platelet Count 313 k/uL (150-450); RDW 12.7 % (11.5-15.5); WBC 11.7 k/uL (3.8-10.6)
[2022-05-09 09:51] LABS: ALT 62 U/L (4-49); African American GFR (CKD) >90 (>60 ml/min/1.73 sqM); Albumin 4.9 g/dL (3.5-5.0); Anion Gap 13 mmol/L; Blood Urea Nitrogen 14 mg/dL (9-20); Calcium 9.6 mg/dL (8.4-10.2); Carbon Dioxide 23 mmol/L (22-30); Chloride 100 mmol/L (98-107); Glucose 160 mg/dL (74-99); Non-African American GFR(CKD) >90 (>60 ml/min/1.73 sqM); Sodium 136 mmol/L (137-145); Total Bilirubin 1.2 mg/dL (0.2-1.3); Total Protein 7.6 g/dL (6.3-8.2)
--- NOTE | 2022-05-09 09:51 | XR ---
EXAMINATION TYPE: XR chest 2V DATE OF EXAM: 05/09/2022 COMPARISON: Chest x-ray 07/07/2021 HISTORY: Pain TECHNIQUE: Frontal and lateral views of the chest are obtained. FINDINGS: There is no focal air space opacity, pleural effusion, or pneumothorax seen. The cardiac silhouette size is within normal limits. The osseous structures are intact. IMPRESSION: No acute cardiopulmonary process.
[2022-05-09 09:52] LABS: AST 51 U/L (17-59); Alkaline Phosphatase 112 U/L (38-126)
[2022-05-09 09:53] LABS: Partial Thromboplastin Time 23.5 sec (22.0-30.0); Prothrombin Time 10.8 sec (9.0-12.0)
[2022-05-09] MEDS ORDERED: NITROGLYCERIN SL TABS 0.4 MG TAB SUBLINGUAL PRN (11:46)
[2022-05-09] MEDS ORDERED: ASPIRIN 81 MG PO STA (11:46)
--- NOTE | 2022-05-09 11:46 | ED ---
General Adult HPI - General Chief complaint: Chest Pain Stated complaint: Chest pains,history of heart attack Time Seen by Provider: 05/09/22 09:10 Source: patient, RN notes reviewed, old records reviewed Mode of arrival: ambulatory Limitations: no limitations - History of Present Illness Initial comments: This is a 46-year-old male who presents emergency Department with a past medical history significant for bypass surgery as well as multiple stents. Patient states he has diabetes type blood pressure and high cholesterol. Patient also has a strong family history of heart disease. Patient states all week long history of having been intermittent episodes of chest pain radiates to his jaw. Patient states that usually occurring while at rest. Patient states he feels like his same pain he had when he had a heart attack except not quite as strong. Patient denies any recent fever chills or cough. Patient denies any diaphoretic episodes. Patient denies shortness of breath or difficulty breathing. Patient denies any abdominal pain patient denies nausea vomiting diarrhea. Patient denies lightheadedness or dizziness. Patient is a late s welling or calf tenderness. Patient states currently the patient is pain-free. - Related Data Home Medications Medication Instructions Recorded Confirmed Verapamil HCl [Calan] 120 mg PO DAILY 07/08/21 07/08/21 allopurinoL [Zyloprim] 100 mg PO BID 07/08/21 07/08/21 metFORMIN HCL [Glucophage] 850 mg PO DAILY 07/08/21 07/08/21 Previous Rx's Medication Instructions Recorded Aspirin 81 mg PO DAILY #30 tab 07/09/21 Atorvastatin [Lipitor] 80 mg PO HS #30 tab 07/09/21 Clopidogrel [Plavix] 75 mg PO DAILY #30 tab 07/09/21 Metoprolol Tartrate [Lopressor] 25 mg PO BID #60 tab 07/09/21 Nitroglycerin Sl Tabs [Nitrostat] 0.4 mg SUBLINGUAL Q5M PRN #10 tab 07/09/21 lisinopriL [Zestril] 10 mg PO DAILY #30 tab 07/09/21 Allergies Allergy/AdvReac Type Severity Reaction Status Date / Time No Known Allergies Allergy Verified 05/09/22 09:05 Review of Systems ROS Statement: Those systems with pertinent positive or pertinent negative responses have been documented in the HPI. ROS Other: All systems not noted in ROS Statement are negative. Past Medical History Past Medical History: Coronary Artery Disease (CAD), Hypertension Additional Past Medical History / Comment(s): umbilical hernia,[place], Gout History of Any Multi-Drug Resistant Organisms: None Reported Past Surgical History: Hernia Repair, Orthopedic Surgery Past Anesthesia/Blood Transfusion Reactions: No Reported Reaction Additional Past Anesthesia/Blood Transfusion Reaction / Comment(s): never had blood transfusion. Past Psychological History: No Psychological Hx Reported Smoking Status: Former smoker Past Alcohol Use History: None Reported Past Drug Use History: None Reported - Past Family History Father History Unknown: Yes Mother Family Medical History: No Reported History Sister(s) Family Medical History: Diabetes Mellitus Brother(s) Family Medical History: Diabetes Mellitus General Exam - General Exam Comments Initial Comments: GENERAL: Patient is well-developed and well-nourished. Patient is nontoxic and well- hydrated and is in no acute distress. ENT: Neck is soft and supple. No significant lymphadenopathy is noted. Oropharynx is clear. Moist mucous membranes. Neck has full range of motion without eliciting any pain. EYES: The sclera were anicteric and conjunctiva were pink and moist. Extraocular movements were intact and pupils were equal round and reactive to light. Eyelids were unremarkable. PULMONARY: Unlabored respirations. Good breath sounds bilaterally. No audible rales rhonchi or wheezing was noted. CARDIOVASCULAR: There is a regular rate and rhythm without any murmurs gallops or rubs. ABDOMEN: Soft and nontender with normal bowel sounds. No palpable organomegaly was noted. There is no palpable pulsatile mass. SKIN: Skin is clear with no lesions or rashes and otherwise unremarkable. NEUROLOGIC: Patient is alert and oriented x3. Cranial nerves II through XII are grossly intact. Motor and sensory are also intact. Normal speech, volume and content. Symmetrical smile. MUSCULOSKELETAL: Normal extremities with adequate strength and full range of motion. No lower extremity swelling or edema. No calf tenderness. LYMPHATICS: No significant lymphadenopathy is noted PSYCHIATRIC: Normal psychiatric evaluation. Limitations: no limitations Course Vital Signs 05/09/22 09:02 Temperature 98.1 F Pulse Rate 62 Respiratory 20 Rate Blood Pressure 163/78 O2 Sat by Pulse 100 Oximetry Medical Decision Making - Medical Decision Making Patient's EKG shows a sinus rhythm at 61 bpm IA interval 157 102 QT Interval 38 QTC Is 391 per Patient's EKG Shows No ST Segment Elevation or Depression. Chest X-Ray Shows No Acute Abnormality. I Will Back and Reevaluated the Patient He Was Chest Pain-Free at This Time. I Was Found Physicians He Agreed to Admit the Patient Admitted the Patient Wrote Admitting Orders and Consult Cardiology I Continue the aspirin and Nitropaste on the floor - Lab Data Result diagrams: 05/09/22 09:25 05/09/22 09:23 Lab Results 05/09/22 05/09/22 05/09/22 Range/Units : 09: 09:25 WBC (3.8-10.6) k/uL RBC (4.30-5.90) m/uL Hgb (13.0-17.5) gm/dL Hct (39.0-53.0) % MCV (80.0-100.0) fL MCH (25.0-35.0) pg MCHC (31.0-37.0) g/dL RDW (11.5-15.5) % Plt Count (150-450) k/uL MPV Neutrophils % % Lymphocytes % % Monocytes % % Eosinophils % % Basophils % % Neutrophils # (1.3-7.7) k/uL Lymphocytes # (1.0-4.8) k/uL Monocytes # (0-1.0) k/uL Eosinophils # (0-0.7) k/uL Basophils # (0-0.2) k/uL PT 10.8 (9.0-12.0) sec INR 1.0 (<1.2) APTT 23.5 (22.0-30.0) sec Sodium 136 L (137-145) mmol/L Potassium 5.0 (3.5-5.1) mmol/L Chloride 100 (98-107) mmol/L Carbon Dioxide 23 (22-30) mmol/L Anion Gap 13 mmol/L BUN 14 (9-20) mg/dL Creatinine 0.78 (0.66-1.25) mg/dL Est GFR (CKD-EPI)AfAm >90 (>60 ml/min/1.73 sqM) Est GFR (CKD-EPI)NonAf >90 (>60 ml/min/1.73 sqM) Glucose 160 H (74-99) mg/dL Calcium 9.6 (8.4-10.2) mg/dL Total Bilirubin 1.2 (0.2-1.3) mg/dL AST 51 (17-59) U/L ALT 62 H (4-49) U/L Alkaline Phosphatase 112 (38-126) U/L Troponin I <0.012 (0.000-0.034) ng/mL Total Protein 7.6 (6.3-8.2) g/dL Albumin 4.9 (3.5-5.0) g/dL 05/09/22 Range/Units 09:25 WBC 11.7 H (3.8-10.6) k/uL RBC 5.50 (4.30-5.90) m/uL Hgb 17.3 (13.0-17.5) gm/dL Hct 53.4 H (39.0-53.0) % MCV 97.1 (80.0-100.0) fL MCH 31.5 (25.0-35.0) pg MCHC 32.5 (31.0-37.0) g/dL RDW 12.7 (11.5-15.5) % Plt Count 313 (150-450) k/uL MPV 7.1 Neutrophils % 66 % Lymphocytes % 23 % Monocytes % 6 % Eosinophils % 1 % Basophils % 1 % Neutrophils # 7.7 (1.3-7.7) k/uL Lymphocytes # 2.7 (1.0-4.8) k/uL Monocytes # 0.7 (0-1.0) k/uL Eosinophils # 0.2 (0-0.7) k/uL Basophils # 0.1 (0-0.2) k/uL PT (9.0-12.0) sec INR (<1.2) APTT (22.0-30.0) sec Sodium (137-145) mmol/L Potassium (3.5-5.1) mmol/L Chloride (98-107) mmol/L Carbon Dioxide (22-30) mmol/L Anion Gap mmol/L BUN (9-20) mg/dL Creatinine (0.66-1.25) mg/dL Est GFR (CKD-EPI)AfAm (>60 ml/min/1.73 sqM) Est GFR (CKD-EPI)NonAf (>60 ml/min/1.73 sqM) Glucose (74-99) mg/dL Calcium (8.4-10.2) mg/dL Total Bilirubin (0.2-1.3) mg/dL AST (17-59) U/L ALT (4-49) U/L Alkaline Phosphatase (38-126) U/L Troponin I (0.000-0.034) ng/mL Total Protein (6.3-8.2) g/dL Albumin (3.5-5.0) g/dL Disposition Clinical Impression: Chest pain Disposition: ADMITTED IP TO THIS HOSP Referrals: David Beltran DO [Primary Care Provider] - 1-2 days Time of Disposition: 11:46
[2022-05-09] MEDS: NITROGLYCERIN OINT 1 INCH/GM PACKET TOPICAL SCH ×2 (12:07→17:58)
--- NOTE | 2022-05-09 12:58 | P.CRDCN ---
History of Present Illness History of present illness: HISTORY OF PRESENTING ILLNESS This is a pleasant 46-year-old male past medical history significant for inferior STEMI 06/2021 status post PCI first obtuse marginal branch of the circumflex, coronary artery disease, hypertension, dyslipidemia, type 2 diabetes, recent dental work on right side. He follows in the office with Dr. Vásquez. We have been asked to see in consultation for chest pain. Patient presents with complaints of intermittent chest discomfort since Thursday. He has the chest pain mostly at rest and notices mostly at night. It is left sided, also with some left sided jaw tightness. The discomfort is non-exertional. It comes and goes. He does also notice it with spicy foods/after eating. He took peptobismol without relief. Last night, he felt his chest pain increase, he took a sublingual nitro with relief. He has no associated symptoms. Denies any shortness of breath, diaphoresis or nausea. He denies any symptoms of orthopnea or PND. He denies tobacco use. He states this is similar symptoms to when he had an [place] in 2020 however not as intense. He is currently chest pain free. Initial troponin is negative. DIAGNOSTICS * EKG reveals sinus rhythm, early repolarization noted in inferior leads, nonspecific T-wave abnormalities. * Stress Echocardiogram Test in the office 12/06/2021- Normal without evidence of ischemia, patient walked for 9 minutes and 19 seconds. and achieved a maximal heart rate of 162bpm well above 85% PMHR. * Echocardiogram 06/2021 revealed EF 5560 percent, trace mitral regurgitation, trace tricuspid regurgitation * Telemetry tracings at bedside indicate sinus rhythm * Chest xray no acute cardiopulmonary process * Laboratory reviewed, troponin negative, sodium 136, potassium 4.0, BUN 14, serum creatinine 2.7, WBC 11.7, hemoglobin 17.3, platelets 313 * Current home cardiac medications include lisinopril 10 mg daily, metoprolol titrate 25 mg twice a day, Plavix 75 mg daily, atorvastatin 80 mg nightly, aspirin 81 mg daily, when necessary nitro * Cardiac catheterization 06/2021 revealed circumflex is marginal which is a first obtuse marginal is totally occluded 100%, no gradient across aortic valve, diffuse disease in the presence of the RCA, no significant disease in the left main, LAD has mild diffuse disease. REVIEW OF SYSTEMS At the time of my exam: CONSTITUTIONAL: Denies fever or chills. CARDIOVASCULAR: +chest pain that has resolved. No shortness of breath, orthopnea, PND or palpitations. RESPIRATORY: Denies cough. GASTROINTESTINAL: Denies abdominal pain, diarrhea, constipation, nausea or vomiting. MUSCULOSKELETAL: Denies myalgias. NEUROLOGIC: Denies numbness, tingling, headacbe or weakness. ENDOCRINE: Denies fatigue, weight change, polydipsia or polyurina. GENITOURINARY: Denies burning, hematuria or urgency with micturation. HEMATOLOGIC: Denies history of anemia or bleeding. PHYSICAL EXAMINATION Blood pressure 143/81, heart 68, afebrile, saturations 99% on room air CONSTITUTIONAL: No apparent distress. HEENT: Head is normocephalic. Pupils are equal, round. Sclerae anicteric. Mucous membranes of the mouth are moist. No JVD. No carotid bruit. CHEST EXAMINATION: Lungs are clear to auscultation. No chest wall tenderness is noted on palpation or with deep breathing. HEART EXAMINATION: Regular rate and rhythm. S1, S2 heard. No murmurs, gallops or rub. ABDOMEN: Soft, nontender. Positive bowel sounds. EXTREMITIES: 2+ peripheral pulses, no lower extremity edema and no calf tenderness. NEUROLOGIC EXAMINATION: Patient is awake, alert and oriented x3. ASSESSMENT Chest pain, appears non-cardiac, workup pending History of inferior STEMI 06/2021 status post PCI first obtuse marginal branch of the circumflex Ccoronary artery disease Hypertension Dyslipidemia Type 2 diabetes Recent dental procedure PLAN Trend troponins Repeat EKG Obtain 2D echocardiogram and doppler study to assess cardiac structure and function. Continue home cardiac medications Further recommendations based on above findings Nurse practitioner note has been reviewed by physician. Signing provider agrees with the documented findings, assessment, and plan of care. Past Medical History Past Medical History: Coronary Artery Disease (CAD), Hypertension Additional Past Medical History / Comment(s): umbilical hernia,[place], Gout History of Any Multi-Drug Resistant Organisms: None Reported Past Surgical History: Hernia Repair, Orthopedic Surgery Past Anesthesia/Blood Transfusion Reactions: No Reported Reaction Additional Past Anesthesia/Blood Transfusion Reaction / Comment(s): never had blood transfusion. Past Psychological History: No Psychological Hx Reported Smoking Status: Former smoker Past Alcohol Use History: None Reported Past Drug Use History: None Reported - Past Family History Father History Unknown: Yes Mother Family Medical History: No Reported History Sister(s) Family Medical History: Diabetes Mellitus Brother(s) Family Medical History: Diabetes Mellitus Medications and Allergies Home Medications Medication Instructions Recorded Confirmed Type allopurinoL [Zyloprim] 100 mg PO BID 07/08/21 05/09/22 History metFORMIN HCL [Glucophage] 850 mg PO DAILY 07/08/21 05/09/22 History Aspirin 81 mg PO DAILY #30 tab 07/09/21 05/09/22 Rx Atorvastatin [Lipitor] 80 mg PO HS #30 tab 07/09/21 05/09/22 Rx Clopidogrel [Plavix] 75 mg PO DAILY #30 tab 07/09/21 05/09/22 Rx Metoprolol Tartrate [Lopressor] 25 mg PO BID #60 tab 07/09/21 05/09/22 Rx Nitroglycerin Sl Tabs [Nitrostat] 0.4 mg SUBLINGUAL Q5M PRN #10 tab 07/09/21 05/09/22 Rx lisinopriL [Zestril] 10 mg PO DAILY #30 tab 07/09/21 05/09/22 Rx Allergies Allergy/AdvReac Type Severity Reaction Status Date / Time No Known Allergies Allergy Verified 05/09/22 09:05 Physical Exam Vitals: Vital Signs Temp Pulse Resp BP Pulse Ox 05/09/22 12:08 68 18 143/81 99 05/09/22 09:02 98.1 F 62 20 163/78 100 Intake and Output 05/08/22 05/09/22 05/09/22 22:59 06:59 14:59 Other: Weight 83.915 kg Results 05/09/22 09:25 05/09/22 09:23 Cardiac Enzymes 05/09/22 05/09/22 Range/Units 09:23 09:25 AST 51 (17-59) U/L Troponin I <0.012 (0.000-0.034) ng/mL Coagulation 05/09/22 Range/Units 09:23 PT 10.8 (9.0-12.0) sec APTT 23.5 (22.0-30.0) sec CBC 05/09/22 Range/Units 09:25 WBC 11.7 H (3.8-10.6) k/uL RBC 5.50 (4.30-5.90) m/uL Hgb 17.3 (13.0-17.5) gm/dL Hct 53.4 H (39.0-53.0) % Plt Count 313 (150-450) k/uL Comprehensive Metabolic Panel 05/09/22 Range/Units 09:23 Sodium 136 L (137-145) mmol/L Potassium 5.0 (3.5-5.1) mmol/L Chloride 100 (98-107) mmol/L Carbon Dioxide 23 (22-30) mmol/L BUN 14 (9-20) mg/dL Creatinine 0.78 (0.66-1.25) mg/dL Glucose 160 H (74-99) mg/dL Calcium 9.6 (8.4-10.2) mg/dL AST 51 (17-59) U/L ALT 62 H (4-49) U/L Alkaline Phosphatase 112 (38-126) U/L Total Protein 7.6 (6.3-8.2) g/dL Albumin 4.9 (3.5-5.0) g/dL Current Medications Generic Name Dose Route Start Last Admin Trade Name Freq PRN Reason Stop Dose Admin Aspirin 325 mg 05/10/22 09:00 Aspirin 325 Mg Tab PO DAILY EMLEIA Nitroglycerin 1 inch 05/09/22 12:00 05/09/22 12:07 Nitroglycerin Oint 1 Inch/Gm Packet TOPICAL 1 inch Q6HR EMELIA Administration Nitroglycerin 0.4 mg 05/09/22 11:46 Nitroglycerin Sl Tabs 0.4 Mg Tab SUBLINGUAL Q5M PRN Chest Pain Intake and Output 05/08/22 05/09/22 05/09/22 22:59 06:59 14:59 Other: Weight 83.915 kg Patient Weight 05/10/22 06:59 Weight 83.915 kg 05/09/22 09:25 05/09/22 09:23
[2022-05-09] MEDS ORDERED: ALPRAZolam 0.25 MG TAB PO PRN (17:05)
[2022-05-09] MEDS ORDERED: DEXTROSE 50% SYRINGE 50 ML IVP PRN ×2 (17:06)
--- NOTE | 2022-05-09 17:12 | P.HPIM ---
History of Present Illness H&P Date: 05/09/22 A shunt is a pleasant 46-year-old male presents to [facility] with sudden onset chest pain. Patient states that the pain developed at night consistently. Patient denies shortness of breath or exertional dyspnea. Patient does have a known history of coronary artery disease with 1 PTCA about a year ago. Last Was a year ago. Patient was concerned because this pain also radiated to the jaw. Patient denied diaphoresis. Patient denied focal neurological deficits. Patient does admit he has acid reflux is not treated. Patient also admits to anxiety. Patient denies nausea vomiting fever or chills. Review of Systems A 14 point review systems was assessed patient was only positive for those described in HPI Past Medical History Past Medical History: Coronary Artery Disease (CAD), Hypertension Additional Past Medical History / Comment(s): umbilical hernia,[place], Gout History of Any Multi-Drug Resistant Organisms: None Reported Past Surgical History: Hernia Repair, Orthopedic Surgery Past Anesthesia/Blood Transfusion Reactions: No Reported Reaction Additional Past Anesthesia/Blood Transfusion Reaction / Comment(s): never had blood transfusion. Past Psychological History: No Psychological Hx Reported Smoking Status: Former smoker Past Alcohol Use History: None Reported Past Drug Use History: None Reported - Past Family History Father History Unknown: Yes Mother Family Medical History: No Reported History Sister(s) Family Medical History: Diabetes Mellitus Brother(s) Family Medical History: Diabetes Mellitus Medications and Allergies Home Medications Medication Instructions Recorded Confirmed Type allopurinoL [Zyloprim] 100 mg PO BID 07/08/21 05/09/22 History metFORMIN HCL [Glucophage] 850 mg PO DAILY 07/08/21 05/09/22 History Aspirin 81 mg PO DAILY #30 tab 07/09/21 05/09/22 Rx Atorvastatin [Lipitor] 80 mg PO HS #30 tab 07/09/21 05/09/22 Rx Clopidogrel [Plavix] 75 mg PO DAILY #30 tab 07/09/21 05/09/22 Rx Metoprolol Tartrate [Lopressor] 25 mg PO BID #60 tab 07/09/21 05/09/22 Rx Nitroglycerin Sl Tabs [Nitrostat] 0.4 mg SUBLINGUAL Q5M PRN #10 tab 07/09/21 05/09/22 Rx lisinopriL [Zestril] 10 mg PO DAILY #30 tab 07/09/21 05/09/22 Rx Allergies Allergy/AdvReac Type Severity Reaction Status Date / Time No Known Allergies Allergy Verified 05/09/22 09:05 Physical Exam Osteopathic Statement: *. No significant issues noted on an osteopathic structural exam other than those noted in the History and Physical/Consult. Vitals: Vital Signs Temp Pulse Pulse Resp BP BP Pulse Ox 05/09/22 15:00 98.6 F 78 18 127/71 98 05/09/22 13:31 75 18 132/74 96 05/09/22 12:08 68 18 143/81 99 05/09/22 09:02 98.1 F 62 20 163/78 100 Intake and Output 05/09/22 05/09/22 05/09/22 06:59 14:59 22:59 Other: # Voids 1 Weight 83.915 kg General: [non toxic], [no distress], [appears at stated age] Derm: [warm], [dry] Head: [atraumatic], [normocephalic], [symmetric] Eyes: [EOMI], [no lid lag], [anicteric sclera] Mouth: [no lip lesion], [mucus membranes moist] Cardiovascular: [S1S2 reg], [no murmur], [positive posterior tibial pulse bilateral], Lungs: [CTA bilateral], [no rhonchi, no rales] , [no accessory muscle use] Abdominal: [soft], [ nontender to palpation], [no guarding], [no appreciable organomegaly] Ext: [no gross muscle atrophy], [no edema], [no contractures] Neuro: [ CN II-XI grossly intact], [no focal neuro deficits] Psych: [Alert], [oriented], [appropriate affect] Results CBC & Chem 7: 05/09/22 09:25 05/09/22 09:23 Labs: Abnormal Lab Results - Last 24 Hours (Table) 05/09/22 05/09/22 Range/Units :09 05: WBC 11.7 H (3.8-10.6) k/uL Hct 53.4 H (39.0-53.0) % Sodium 136 L (137-145) mmol/L Glucose 160 H (74-99) mg/dL ALT 62 H (4-49) U/L Thrombosis Risk Factor Assmnt - DVT/VTE Prophylaxis DVT/VTE Prophylaxis: Pharmacologic Prophylaxis ordered - Choose All That Apply Each Factor Represents 1 point: Acute [place] Thrombosis Risk Factor Assessment Total Risk Factor Score: 1 Thrombosis Risk Factor Assessment Level: Low Risk Assessment and Plan Assessment: 1. Atypical chest pain likely due to GERD +/- anxiety Cardiology recommendations appreciated PPI BID Xanax when necessary Telemetry Trend troponin Echocardiogram ordered 2. History of hypertension Resume home medications 3. History of hyperlipidemia To aspirin and statin 4. History of coronary artery disease with PTCA 1 Cardiac cath completed 1 year 5. Wqn-zsyyfdd-nxcosbyrm diabetes mellitus Insulin sliding scale Diabetic diet 6. GI DVT prophylaxis 7. A.m. labs Disposition home Anticipated length of stay 24-48 hours Greater than 35 minutes spent coordinating care documenting and counseling patient. Patient is a full code Time with Patient: Greater than 30
[2022-05-09 17:54] LABS: Glucose,Whole Blood 102 mg/dL (70-110)
[2022-05-09] MEDS: INSULIN ASPART (NovoLOG) 100 UNIT/ML VIAL SQ SCH (17:54)
[2022-05-09] MEDS: HEPARIN SODIUM,PORCINE/PF 5,000 UNIT/0.5 ML SYRINGE SQ SCH (17:58)
[2022-05-09] MEDS: PANTOPRAZOLE 40 MG TABLET PO SCH (17:58)
[2022-05-09] MEDS ORDERED: CALCIUM CARBONATE 500 MG CHEWABLE PO STA (19:37)
[2022-05-09 20:54] LABS: Glucose,Whole Blood 112 mg/dL (70-110)
[2022-05-09] MEDS: allopurinoL 100 MG TAB PO SCH (21:00)
[2022-05-09] MEDS: METOPROLOL TARTRATE 25 MG TAB PO SCH (21:00)
[2022-05-09] MEDS ORDERED: ATORVASTATIN 80 MG TAB PO SCH (21:00)
[2022-05-10] MEDS: NITROGLYCERIN OINT 1 INCH/GM PACKET TOPICAL SCH ×3 (00:18→12:11)
[2022-05-10] MEDS: HEPARIN SODIUM,PORCINE/PF 5,000 UNIT/0.5 ML SYRINGE SQ SCH ×2 (00:19→09:12)
[2022-05-10] MEDS ORDERED: ACETAMINOPHEN TAB 325 MG TAB PO STA (00:24)
[2022-05-10 07:20] LABS: Glucose,Whole Blood 116 mg/dL (70-110)
[2022-05-10 07:41] LABS: ALT 50 U/L (4-49); AST 34 U/L (17-59); African American GFR (CKD) >90 (>60 ml/min/1.73 sqM); Albumin 4.1 g/dL (3.5-5.0); Alkaline Phosphatase 92 U/L (38-126); Anion Gap 9 mmol/L; Blood Urea Nitrogen 16 mg/dL (9-20); Calcium 9.3 mg/dL (8.4-10.2); Carbon Dioxide 27 mmol/L (22-30); Chloride 102 mmol/L (98-107); Globulin 2.1 g/dL; Glucose 110 mg/dL (74-99); Magnesium 1.7 mg/dL (1.6-2.3); Non-African American GFR(CKD) >90 (>60 ml/min/1.73 sqM); Sodium 138 mmol/L (137-145); Total Bilirubin 1.1 mg/dL (0.2-1.3); Total Protein 6.2 g/dL (6.3-8.2)
[2022-05-10] MEDS: INSULIN ASPART (NovoLOG) 100 UNIT/ML VIAL SQ SCH ×2 (08:28→12:30)
[2022-05-10] MEDS ORDERED: CLOPIDOGREL 75 MG TAB PO SCH (09:00)
[2022-05-10] MEDS ORDERED: lisinopriL 10 MG TAB PO SCH (09:00)
[2022-05-10] MEDS ORDERED: ASPIRIN 325 MG TAB PO SCH (09:00)
[2022-05-10] MEDS ORDERED: ASPIRIN 81 MG PO SCH (09:00)
[2022-05-10] MEDS: allopurinoL 100 MG TAB PO SCH (09:12)
[2022-05-10] MEDS: METOPROLOL TARTRATE 25 MG TAB PO SCH (09:12)
[2022-05-10] MEDS: PANTOPRAZOLE 40 MG TABLET PO SCH (09:12)
[2022-05-10 11:36] LABS: Basophils # (A) 0.06 X 10*3/uL (0.00-0.10); Basophils % (A) 0.5 %; Eosinophils # (A) 0.16 X 10*3/uL (0.04-0.35); Eosinophils % (A) 1.4 %; HCT 45.7 % (39.6-50.0); HGB 14.8 g/dL (13.0-17.0); Immature Grans, Automated 0.2 %; Lymphocytes # (A) 2.87 X 10*3/uL (0.90-5.00); Lymphocytes % (A) 24.7 %; MCH 30.8 pg (27.0-32.0); MCHC 32.4 g/dL (32.0-37.0); Mean Platelet Volume 9.8 fL (9.5-12.2); Monocytes # (A) 0.94 X 10*3/uL (0.20-1.00); Monocytes % (A) 8.1 %; NRBC Per 100 WBC 0 /100 WBCS (0.0-0.0); Neutrophils # (A) 7.55 X 10*3/uL (1.80-7.70); Neutrophils % (A) 65.1 %; Platelet Count 288 X 10*3/uL (140-440); RBC 4.81 X 10*6/uL (4.40-5.60); RDW 12.7 % (11.5-14.5)
[2022-05-10 12:09] LABS: Chol/HDL Ratio 3.27 Ratio; LDL Cholesterol,Calculated 79.1 mg/dL (0.0-131.0)
[2022-05-10 12:26] LABS: Glucose,Whole Blood 103 mg/dL (70-110)
--- NOTE | 2022-05-10 13:39 | P.PN ---
Subjective Progress Note Date: 05/10/22 The patient was seen at bedside, no acute events overnight. He stated that his chest pain has resolved. Objective - Vital Signs Vital signs: Vital Signs Temp 98.1 F 05/10/22 12:25 Pulse 56 L 05/10/22 12:25 Resp 16 05/10/22 12:25 BP 144/77 05/10/22 12:25 Pulse Ox 99 05/10/22 12:25 FiO2 Intake & Output 05/09/22 05/10/22 05/10/22 18:59 06:59 18:59 Intake Total 0 Balance 0 Weight 83.915 kg Intake: Oral 0 Other: Voiding Method Toilet # Voids 1 2 1 - Exam General: [non toxic], [no distress], [appears at stated age] Derm: [warm], [dry] Head: [atraumatic], [normocephalic], [symmetric] Eyes: [EOMI], [no lid lag], [anicteric sclera] Mouth: [no lip lesion], [mucus membranes moist] Cardiovascular: [S1S2 reg], [no murmur], [positive posterior tibial pulse bilateral], Lungs: [CTA bilateral], [no rhonchi, no rales] , [no accessory muscle use] Abdominal: [soft], [ nontender to palpation], [no guarding], [no appreciable organomegaly] Ext: [no gross muscle atrophy], [no edema], [no contractures] Neuro: [ CN II-XI grossly intact], [no focal neuro deficits] Psych: [Alert], [oriented], [appropriate affect] - Labs CBC & Chem 7: 05/10/22 06:35 05/10/22 06:35 Labs: Abnormal Lab Results - Last 24 Hours (Table) 05/09/22 05/09/22 05/10/22 Range/Units 20:38 20:52 06:35 WBC (4.50-10.00) X 10*3/uL Glucose 110 H (74-99) mg/dL POC Glucose (mg/dL) 112 H (70-110) mg/dL Hemoglobin A1c 6.1 H (0.0-6.0) % ALT 50 H (4-49) U/L Total Protein 6.2 L (6.3-8.2) g/dL 05/10/22 05/10/22 Range/Units 06:35 07:19 WBC 11.60 H (4.50-10.00) X 10*3/uL Glucose (74-99) mg/dL POC Glucose (mg/dL) 116 H (70-110) mg/dL Hemoglobin A1c (0.0-6.0) % ALT (4-49) U/L Total Protein (6.3-8.2) g/dL Assessment and Plan Assessment: 1. Atypical chest pain likely due to GERD +/- anxiety Cardiology recommendations appreciated PPI BID Xanax when necessary Telemetry Trend troponin Echocardiogram ordered 2. History of hypertension Resume home medications 3. History of hyperlipidemia Continue aspirin and statin 4. History of coronary artery disease with PTCA 1 Cardiac cath completed 1 year 5. Egi-hsoaxzw-oedjuqgma diabetes mellitus Insulin sliding scale Diabetic diet 6. GI DVT prophylaxis 7. A.m. labs Disposition home Anticipated length of stay 24-48 hours Greater than 35 minutes spent coordinating care documenting and counseling patient. Patient is a full code Time with Patient: Greater than 30
--- NOTE | 2022-05-10 14:27 | P.PN ---
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 He follows in the office with Dr. Vásquez. We have been asked to see in consultation for chest pain. Patient presents with complaints of intermittent chest discomfort since Thursday. He has the chest pain mostly at rest and notices mostly at night. It is left sided, also with some left sided jaw tightness. The discomfort is non-exertional. It c omes and goes. He does also notice it with spicy foods/after eating. He took peptobismol without relief. Last night, he felt his chest pain increase, he took a sublingual nitro with relief. He has no associated symptoms. Denies any shortness of breath, diaphoresis or nausea. He denies any symptoms of orthopnea or PND. He denies tobacco use. He states this is similar symptoms to when he had an PA in 2020 however not as intense. He is currently chest pain free. Initial troponin is negative. DIAGNOSTICS * EKG reveals sinus rhythm, early repolarization noted in inferior leads, nonspecific T-wave abnormalities. * Stress Echocardiogram Test in the office 12/06/2021- Normal without evidence of ischemia, patient walked for 9 minutes and 19 seconds. and achieved a maximal heart rate of 162bpm well above 85% PMHR. * Echocardiogram 06/2021 revealed EF 5560 percent, trace mitral regurgitation, trace tricuspid regurgitation * Telemetry tracings at bedside indicate sinus rhythm * Chest xray no acute cardiopulmonary process * Laboratory reviewed, troponin negative x4 * Cardiac catheterization 06/2021 revealed circumflex is marginal which is a first obtuse marginal is totally occluded 100%, no gradient across aortic valve, diffuse disease in the presence of the RCA, no significant disease in the left main, LAD has mild diffuse disease. 05/10/2022 Patient was seen and examined resting comfortably in a chair. He's had no further complaints of chest discomfort. Echocardiogram is pending. Vital signs have been stable. Objective - Vital Signs Vital signs: Vital Signs Temp 98.1 F 05/10/22 12:25 Pulse 56 L 05/10/22 12:25 Resp 16 05/10/22 12:25 BP 144/77 05/10/22 12:25 Pulse Ox 99 05/10/22 12:25 FiO2 Intake & Output 05/09/22 05/10/22 05/10/22 18:59 06:59 18:59 Intake Total 0 118 Balance 0 118 Weight 83.915 kg Intake: Oral 0 118 Other: Voiding Method Toilet # Voids 1 2 1 - Exam CONSTITUTIONAL: No apparent distress. HEENT: Head is normocephalic. Pupils are equal, round. Sclerae anicteric. Mucous membranes of the mouth are moist. No JVD. No carotid bruit. CHEST EXAMINATION: Lungs are clear to auscultation. No chest wall tenderness is noted on palpation or with deep breathing. HEART EXAMINATION: Regular rate and rhythm. S1, S2 heard. No murmurs, gallops or rub. ABDOMEN: Soft, nontender. Positive bowel sounds. EXTREMITIES: 2+ peripheral pulses, no lower extremity edema and no calf tenderness. NEUROLOGIC EXAMINATION: Patient is awake, alert and oriented x3. - Labs CBC & Chem 7: 05/10/22 06:35 05/10/22 06:35 Labs: Abnormal Lab Results - Last 24 Hours (Table) 05/09/22 05/09/22 05/10/22 Range/Units 20:38 20:52 06:35 WBC (4.50-10.00) X 10*3/uL Glucose 110 H (74-99) mg/dL POC Glucose (mg/dL) 112 H (70-110) mg/dL Hemoglobin A1c 6.1 H (0.0-6.0) % ALT 50 H (4-49) U/L Total Protein 6.2 L (6.3-8.2) g/dL 05/10/22 05/10/22 Range/Units 06:35 07:19 WBC 11.60 H (4.50-10.00) X 10*3/uL Glucose (74-99) mg/dL POC Glucose (mg/dL) 116 H (70-110) mg/dL Hemoglobin A1c (0.0-6.0) % ALT (4-49) U/L Total Protein (6.3-8.2) g/dL Assessment and Plan Assessment: Chest pain, appears non-cardiac, troponins negative 4, echocardiogram pending History of inferior STEMI 06/2021 status post PCI first obtuse marginal branch of the circumflex Ccoronary artery disease Hypertension Dyslipidemia Type 2 diabetes Recent dental procedure Plan: From cardiology's perspective if there is no significant abnormalities noted on the echocardiogram he may be discharged home and follow-up as an outpatient with Dr. Vásquez. PAYROLL CLERK note has been reviewed, I agree with a documented findings and plan of care. Patient was seen and examined.
[2022-05-10 15:03] VITALS: BP 126/76; PULSE 61; RESP 15; TEMP 98.3
--- NOTE | 2022-05-10 16:01 | P.DS ---
Providers Date of admission: 05/09/22 11:46 Expected date of discharge: 05/10/22 Attending physician: Dirk Robertson MD Consults: 05/09/22 11:46 Consult Physician Urgent Consulting Provider: [facility] Consult Reason/Comments: Chest pain Do you want consulting provider notified?: Yes Primary care physician: David Beltran Hospital Course: Discharge diagnosis: Atypical chest pain likely due to GERD +/- anxiety History of hypertension History of hyperlipidemia History of coronary artery disease with PTCA 1 Mhs-idciper-hblrjmzlj diabetes mellitus Hospital course: A shunt is a pleasant 46-year-old male presents to [facility] with sudden onset chest pain. Patient states that the pain developed at night consistently. Patient denies shortness of breath or exertional dyspnea. Patient does have a known history of coronary artery disease with 1 PTCA about a year ago. Last Was a year ago. Patient was concerned because this pain also radiated to the jaw. Patient denied diaphoresis. Patient denied focal neurological deficits. Patient does admit he has acid reflux is not treated. Patient also admits to anxiety. Patient denies nausea vomiting fever or chills. According to cardiology his chest pain, appears non-cardiac, troponins negative 4, echocardiogram read was within normal limits per Cardiology. He may be discharged home and follow-up as an outpatient with Dr. Vásquez. Physical examination: General: [non toxic], [no distress], [appears at stated age] Derm: [warm], [dry] Head: [atraumatic], [normocephalic], [symmetric] Eyes: [EOMI], [no lid lag], [anicteric sclera] Mouth: [no lip lesion], [mucus membranes moist] Cardiovascular: [S1S2 reg], [no murmur], [positive posterior tibial pulse bilateral], Lungs: [CTA bilateral], [no rhonchi, no rales] , [no accessory muscle use] Abdominal: [soft], [ nontender to palpation], [no guarding], [no appreciable organomegaly] Ext: [no gross muscle atrophy], [no edema], [no contractures] Neuro: [ CN II-XI grossly intact], [no focal neuro deficits] Psych: [Alert], [oriented], [appropriate affect] Plan - Discharge Summary Discharge Rx Participant: Yes New Discharge Prescriptions: New INSULIN ASPART (NovoLOG) [NovoLOG (formulary)] 0 unit SQ AC-TID each Pantoprazole [Protonix] 40 mg PO AC-BID tab Aspirin 81 mg PO DAILY tab allopurinoL [Zyloprim] 100 mg PO BID tab Continue allopurinoL [Zyloprim] 100 mg PO BID metFORMIN HCL [Glucophage] 850 mg PO DAILY Metoprolol Tartrate [Lopressor] 25 mg PO BID #60 tab lisinopriL [Zestril] 10 mg PO DAILY #30 tab Atorvastatin [Lipitor] 80 mg PO HS #30 tab Clopidogrel [Plavix] 75 mg PO DAILY #30 tab Discontinued Aspirin 81 mg PO DAILY #30 tab Nitroglycerin Sl Tabs [Nitrostat] 0.4 mg SUBLINGUAL Q5M PRN #10 tab PRN Reason: Chest Pain Discharge Medication List allopurinoL [Zyloprim] 100 mg PO BID 07/08/21 [History] metFORMIN HCL [Glucophage] 850 mg PO DAILY 07/08/21 [History] Atorvastatin [Lipitor] 80 mg PO HS #30 tab 07/09/21 [Rx] Clopidogrel [Plavix] 75 mg PO DAILY #30 tab 07/09/21 [Rx] Metoprolol Tartrate [Lopressor] 25 mg PO BID #60 tab 07/09/21 [Rx] lisinopriL [Zestril] 10 mg PO DAILY #30 tab 07/09/21 [Rx] Aspirin 81 mg PO DAILY tab 05/10/22 [Rx] INSULIN ASPART (NovoLOG) [NovoLOG (formulary)] 0 unit SQ AC-TID each 05/10/22 [Rx] Pantoprazole [Protonix] 40 mg PO AC-BID tab 05/10/22 [Rx] allopurinoL [Zyloprim] 100 mg PO BID tab 05/10/22 [Rx] Follow up Appointment(s)/Referral(s): David Beltran DO [Primary Care Provider] - 1-2 days Discharge Disposition: HOME SELF-CARE
--- NOTE | 2022-05-10 16:52 | CA ---
Transthoracic Echo Report Name: Yinka Murphy Age: 46 Gender: M : 1975 Exam Date: 05/10/2022 14:25 Exam Location: [place] [facility] Ht (in): 73 Wt (lb): 185 Ordering Physician: Aislinn Ball Attending/Referring Phys: Horn Player Madison Puri RDCS Procedure CPT: Indications: chest pain, hx STEMI in 06/2021 Cardiac Hx: Technical Quality: Good Contrast 1: Total Dose (mL): Contrast 2: Total Dose (mL): MEASUREMENTS (Male / Female) Normal Values 2D ECHO LV Diastolic Diameter PLAX 4.3 cm 4.2 - 5.9 / 3.9 - 5.3 cm LV Systolic Diameter PLAX 2.8 cm IVS Diastolic Thickness 1.2 cm 0.6 - 1.0 / 0.6 - 0.9 cm LVPW Diastolic Thickness 1.2 cm 0.6 - 1.0 / 0.6 - 0.9 cm LV Relative Wall Thickness 0.6 RV Internal Dim ED PLAX 3.5 cm LA Systolic Diameter LX 3.9 cm 3.0 - 4.0 / 2.7 - 3.8 cm LA Volume 57.2 cm??? 18 - 58 / 22 - 52 cm??? M-MODE Aortic Root Diameter MM 2.9 cm MV E Point Septal Separation 0.4 cm AV Cusp Separation MM 1.9 cm DOPPLER AV Peak Velocity 173.1 cm/s AV Peak Gradient 12.0 mmHg MV Area PHT 3.5 cm??? Mitral E Point Velocity 93.2 cm/s Mitral A Point Velocity 81.3 cm/s Mitral E to A Ratio 1.1 MV Deceleration Time 216.8 ms TR Peak Velocity 224.9 cm/s TR Peak Gradient 20.2 mmHg Right Ventricular Systolic Press 25.2 mmHg FINDINGS Left Ventricle Left ventricular ejection fraction is estimated at 55-60 %. Left ventricular cavity size normal. Mild left ventricular hypertrophy. Right Ventricle Mild right ventricular dilatation. Right ventricular systolic pressure within normal limits. Right Atrium Normal right atrial size. Left Atrium Normal left atrial size. No evidence for an atrial septal defect. Mitral Valve Structurally normal mitral valve. No mitral stenosis. Trace mitral regurgitation. Aortic Valve No aortic valve stenosis or regurgitation. Trileaflet aortic valve Tricuspid Valve Mild tricuspid regurgitation.structurally normal tricuspid valve. Pulmonic Valve Trace pulmonic regurgitation. Pericardium Normal pericardium. No pericardial effusion. Aorta Normal size aortic root and proximal ascending aorta. CONCLUSIONS 1. Normal left ventricle size and systolic function 2. Trace mitral was mild tricuspid regurgitation 3. No pericardial effusion Previewed by: Dr. Romeo Fortune MD (Electronically Signed) Final Date: 10 May 2022 16:51
== END 2022-05-10 16:31 | disposition home or self-care (01) ==
LOC: EC 08:56 → 6NMEDSUR 11:46
PROVIDERS: ADMIT Internal Medicine; ATTEND Internal Medicine
DX: R07.89 Other chest pain (principal); I25.10 Atherosclerotic heart disease of native coronary artery without angina pectoris; K21.9 Gastro-esophageal reflux disease without esophagitis; F41.9 Anxiety disorder, unspecified; E78.5 Hyperlipidemia, unspecified; I10 Essential (primary) hypertension; I25.2 Old myocardial infarction; E11.9 Type 2 diabetes mellitus without complications; E78.00 Pure hypercholesterolemia, unspecified; M10.9 Gout, unspecified; Z79.84 Long term (current) use of oral hypoglycemic drugs; Z79.02 Long term (current) use of antithrombotics/antiplatelets; Z79.82 Long term (current) use of aspirin; Z79.899 Other long term (current) drug therapy; Z87.19 Personal history of other diseases of the digestive system; Z95.1 Presence of aortocoronary bypass graft; Z95.5 Presence of coronary angioplasty implant and graft; Z98.890 Other specified postprocedural states; Z87.891 Personal history of nicotine dependence; Z98.818 Other dental procedure status; Z83.3 Family history of diabetes mellitus; Z82.49 Family history of ischemic heart disease and other diseases of the circulatory system
CPT/HCPCS: 96372 ×2; 99285; 36415; 93005; 93306; 80061; 80053 ×2; 84443; 83735; 84484; 85025 ×2; 85610; 85730; 83036 ×2; 71046; G0378 ×2; J1644 ×2

== ENCOUNTER 2022-05-11 14:10 | Emergency (ER) | payer OTHER ==
[2022-05-11] MEDS ORDERED: PANTOPRAZOLE 40 MG/10 ML VIAL IVP STA (14:39)
--- NOTE | 2022-05-11 14:40 | ED ---
General Adult HPI - General Chief complaint: Chest Pain Stated complaint: Chest pains Time Seen by Provider: 05/11/22 14:18 Source: patient, RN notes reviewed, old records reviewed Mode of arrival: ambulatory Limitations: no limitations - History of Present Illness Initial comments: 46-year-old male with CAD presenting with left upper chest pain. Patient was recently admitted, he had serial cardiac enzymes, echocardiogram and states he was discharged. He continues to have left upper chest pain. No associated vomiting or diaphoresis. Patient does have known CAD status post stenting approximately one year ago. - Related Data Home Medications Medication Instructions Recorded Confirmed allopurinoL [Zyloprim] 100 mg PO BID 07/08/21 05/09/22 metFORMIN HCL [Glucophage] 850 mg PO DAILY 07/08/21 05/09/22 Previous Rx's Medication Instructions Recorded Atorvastatin [Lipitor] 80 mg PO HS #30 tab 07/09/21 Clopidogrel [Plavix] 75 mg PO DAILY #30 tab 07/09/21 Metoprolol Tartrate [Lopressor] 25 mg PO BID #60 tab 07/09/21 lisinopriL [Zestril] 10 mg PO DAILY #30 tab 07/09/21 Aspirin 81 mg PO DAILY tab 05/10/22 INSULIN ASPART (NovoLOG) [NovoLOG 0 unit SQ AC-TID each 05/10/22 (formulary)] Pantoprazole [Protonix] 40 mg PO AC-BID tab 05/10/22 allopurinoL [Zyloprim] 100 mg PO BID tab 05/10/22 Allergies Allergy/AdvReac Type Severity Reaction Status Date / Time No Known Allergies Allergy Verified 05/11/22 14:17 Review of Systems ROS Statement: Those systems with pertinent positive or pertinent negative responses have been documented in the HPI. ROS Other: All systems not noted in ROS Statement are negative. Past Medical History Past Medical History: Coronary Artery Disease (CAD), Hypertension Additional Past Medical History / Comment(s): umbilical hernia,IN, Gout History of Any Multi-Drug Resistant Organisms: None Reported Past Surgical History: Hernia Repair, Orthopedic Surgery Past Anesthesia/Blood Transfusion Reactions: No Reported Reaction Additional Past Anesthesia/Blood Transfusion Reaction / Comment(s): never had blood transfusion. Past Psychological History: No Psychological Hx Reported Smoking Status: Former smoker Past Alcohol Use History: None Reported Past Drug Use History: None Reported - Past Family History Father History Unknown: Yes Mother Family Medical History: No Reported History Sister(s) Family Medical History: Diabetes Mellitus Brother(s) Family Medical History: Diabetes Mellitus General Exam Limitations: no limitations General appearance: alert, in no apparent distress Head exam: Present: atraumatic, normocephalic Eye exam: Present: normal appearance, PERRL ENT exam: Present: normal exam Neck exam: Present: normal inspection. Absent: tenderness, meningismus Respiratory exam: Present: normal lung sounds bilaterally. Absent: respiratory distress, wheezes, rales Cardiovascular Exam: Present: regular rate, normal rhythm, bradycardia GI/Abdominal exam: Present: soft. Absent: distended, tenderness Extremities exam: Present: normal inspection Neurological exam: Present: alert Psychiatric exam: Present: normal affect, normal mood Skin exam: Present: warm, dry, intact. Absent: cyanosis, diaphoretic Course Vital Signs 05/11/22 14:14 Temperature 98.1 F Pulse Rate 74 Respiratory 16 Rate Blood Pressure 147/77 O2 Sat by Pulse 99 Oximetry EKG Findings - EKG Comments: EKG Findings:: EKG: Sinus rhythm rate 75, AR interval 147, QRS duration 101, QTC 403, no ST segment elevation Medical Decision Making - Medical Decision Making 46-year-old male with known cardiac disease presents for evaluation of left upper chest pain. This is not associated with typical features. The patient had been admitted over the past several days with serial cardiac enzymes, echo, cardiology consultation. I did repeat testing in the emergency department including EKG, chest x-ray, laboratory testing. I did discuss case with Dr. Fortune who had evaluated the patient in consultation was familiar with the patient, he felt that the patient's previous chest pain had been atypical. I offered the patient admission for serial cardiac enzymes, telemetry, cardiology consultation and further evaluation. Patient ultimately decided that he would prefer outpatient follow-up with discharge. He's given strict return parameters. - Lab Data Result diagrams: 05/11/22 14:33 05/11/22 14:33 Lab Results 05/11/22 05/11/22 05/11/22 Range/Units 14:33 14:33 14:33 WBC 10.3 (3.8-10.6) k/uL RBC 4.82 (4.30-5.90) m/uL Hgb 15.2 (13.0-17.5) gm/dL Hct 44.1 (39.0-53.0) % MCV 91.6 D (80.0-100.0) fL MCH 31.5 (25.0-35.0) pg MCHC 34.4 (31.0-37.0) g/dL RDW 12.8 (11.5-15.5) % Plt Count 264 (150-450) k/uL MPV 7.7 Neutrophils % 67 % Lymphocytes % 21 % Monocytes % 7 % Eosinophils % 1 % Basophils % 1 % Neutrophils # 6.9 (1.3-7.7) k/uL Lymphocytes # 2.1 (1.0-4.8) k/uL Monocytes # 0.7 (0-1.0) k/uL Eosinophils # 0.1 (0-0.7) k/uL Basophils # 0.1 (0-0.2) k/uL PT 10.4 (9.0-12.0) sec INR 1.0 (<1.2) APTT 23.2 (22.0-30.0) sec Sodium 137 (137-145) mmol/L Potassium 4.2 (3.5-5.1) mmol/L Chloride 100 (98-107) mmol/L Carbon Dioxide 25 (22-30) mmol/L Anion Gap 12 mmol/L BUN 16 (9-20) mg/dL Creatinine 0.84 (0.66-1.25) mg/dL Est GFR (CKD-EPI)AfAm >90 (>60 ml/min/1.73 sqM) Est GFR (CKD-EPI)NonAf >90 (>60 ml/min/1.73 sqM) Glucose 97 (74-99) mg/dL Calcium 9.5 (8.4-10.2) mg/dL Magnesium 1.7 (1.6-2.3) mg/dL Total Bilirubin 0.7 (0.2-1.3) mg/dL AST 32 (17-59) U/L ALT 48 (4-49) U/L Alkaline Phosphatase 91 (38-126) U/L Troponin I (0.000-0.034) ng/mL Total Protein 6.6 (6.3-8.2) g/dL Albumin 4.4 (3.5-5.0) g/dL 05/11/22 Range/Units 14:33 WBC (3.8-10.6) k/uL RBC (4.30-5.90) m/uL Hgb (13.0-17.5) gm/dL Hct (39.0-53.0) % MCV (80.0-100.0) fL MCH (25.0-35.0) pg MCHC (31.0-37.0) g/dL RDW (11.5-15.5) % Plt Count (150-450) k/uL MPV Neutrophils % % Lymphocytes % % Monocytes % % Eosinophils % % Basophils % % Neutrophils # (1.3-7.7) k/uL Lymphocytes # (1.0-4.8) k/uL Monocytes # (0-1.0) k/uL Eosinophils # (0-0.7) k/uL Basophils # (0-0.2) k/uL PT (9.0-12.0) sec INR (<1.2) APTT (22.0-30.0) sec Sodium (137-145) mmol/L Potassium (3.5-5.1) mmol/L Chloride (98-107) mmol/L Carbon Dioxide (22-30) mmol/L Anion Gap mmol/L BUN (9-20) mg/dL Creatinine (0.66-1.25) mg/dL Est GFR (CKD-EPI)AfAm (>60 ml/min/1.73 sqM) Est GFR (CKD-EPI)NonAf (>60 ml/min/1.73 sqM) Glucose (74-99) mg/dL Calcium (8.4-10.2) mg/dL Magnesium (1.6-2.3) mg/dL Total Bilirubin (0.2-1.3) mg/dL AST (17-59) U/L ALT (4-49) U/L Alkaline Phosphatase (38-126) U/L Troponin I <0.012 (0.000-0.034) ng/mL Total Protein (6.3-8.2) g/dL Albumin (3.5-5.0) g/dL Disposition Clinical Impression: Chest pain Disposition: HOME SELF-CARE Condition: Fair Instructions (If sedation given, give patient instructions): Chest Pain (ED) Is patient prescribed a controlled substance at d/c from ED?: No Referrals: David Beltran DO [Primary Care Provider] - 1-2 days Rj Vásquez MD [STAFF PHYSICIAN] - 1-2 days Time of Disposition: 16:27
--- NOTE | 2022-05-11 15:04 | XR ---
EXAMINATION TYPE: XR chest 2V DATE OF EXAM: 05/11/2022 COMPARISON: 05/09/2022 HISTORY: Chest pain TECHNIQUE: Frontal and lateral views of the chest are obtained. FINDINGS: There is no focal air space opacity, pleural effusion, or pneumothorax seen. The cardiac silhouette size is within normal limits. The osseous structures are intact. IMPRESSION: No acute cardiopulmonary process.
[2022-05-11 15:08] LABS: Basophils # (A) 0.1 k/uL (0-0.2); Basophils % (A) 1 %; Eosinophils # (A) 0.1 k/uL (0-0.7); Eosinophils % (A) 1 %; HCT 44.1 % (39.0-53.0); HGB 15.2 gm/dL (13.0-17.5); Lymphocytes # (A) 2.1 k/uL (1.0-4.8); Lymphocytes % (A) 21 %; MCH 31.5 pg (25.0-35.0); MCHC 34.4 g/dL (31.0-37.0); Mean Platelet Volume 7.7; Monocytes # (A) 0.7 k/uL (0-1.0); Monocytes % (A) 7 %; Neutrophils # (A) 6.9 k/uL (1.3-7.7); Neutrophils % (A) 67 %; Platelet Count 264 k/uL (150-450); RBC 4.82 m/uL (4.30-5.90); RDW 12.8 % (11.5-15.5); WBC 10.3 k/uL (3.8-10.6)
[2022-05-11 15:15] LABS: MCV 91.6 fL (80.0-100.0)
[2022-05-11 15:21] LABS: ALT 48 U/L (4-49); AST 32 U/L (17-59); African American GFR (CKD) >90 (>60 ml/min/1.73 sqM); Albumin 4.4 g/dL (3.5-5.0); Alkaline Phosphatase 91 U/L (38-126); Anion Gap 12 mmol/L; Blood Urea Nitrogen 16 mg/dL (9-20); Calcium 9.5 mg/dL (8.4-10.2); Carbon Dioxide 25 mmol/L (22-30); Chloride 100 mmol/L (98-107); Glucose 97 mg/dL (74-99); Magnesium 1.7 mg/dL (1.6-2.3); Non-African American GFR(CKD) >90 (>60 ml/min/1.73 sqM); Potassium 4.2 mmol/L (3.5-5.1); Sodium 137 mmol/L (137-145); Total Bilirubin 0.7 mg/dL (0.2-1.3); Total Protein 6.6 g/dL (6.3-8.2)
[2022-05-11 15:22] LABS: Partial Thromboplastin Time 23.2 sec (22.0-30.0); Prothrombin Time 10.4 sec (9.0-12.0)
[2022-05-11 17:03] VITALS: BP 153/80; PULSE 75; RESP 18; TEMP 98.6
== END 2022-05-11 17:04 | disposition home or self-care (01) ==
LOC: EC 14:10
DX: R07.9 Chest pain, unspecified (principal); I25.10 Atherosclerotic heart disease of native coronary artery without angina pectoris; I10 Essential (primary) hypertension; Z87.891 Personal history of nicotine dependence
CPT/HCPCS: 36415; 93005; 80053; 83735; 84484; 85025; 85610; 85730; 71046; 99285; 96374; C9113